=== PATIENT | female | born 1995 | race Two or more races ===

== ENCOUNTER 2024-09-06 10:24 | Outpatient (REF) | payer MEDICAID, SELFPAY ==
[2024-09-06 11:42] LABS: MANUAL DIFF FLAG NO
[2024-09-06 11:48] LABS: Basophils Percent Auto 0.5 % (0-2); Eosinophils Absolute Auto 0.1 X10*3/uL (0.0-0.4); Hematocrit 44.2 % (37.0-47.0); Hemoglobin 13.9 g/dl (12.0-16.0); Imm Gran Abs Auto 0.02 X10*3/uL (0.00-0.03); Imm Gran Pct Auto 0.4 % (0.0-0.4); Lymphocytes Absolute Auto 1.9 X10*3/uL (1.2-4.9); Lymphocytes Percent Auto 33.3 % (20-40); Mean Corpuscular HGB Conc 31.4 g/dl (31.0-35.0); Mean Corpuscular Hemoglobin 26.6 pg (27.0-33.0); Mean Corpuscular Volume 84.5 fL (80.0-98.0); Mean Platelet Volume 10.7 fL (9.4-12.3); Monocytes Absolute Auto 0.4 X10*3/uL (0.1-1.2); Monocytes Percent Auto 7.7 % (2-11); Neutrophils Absolute Auto 3.1 x10*3/uL (2.0-8.3); Neutrophils Percent Auto 56.1 % (45-73); Platelet Count 277 X10*3/uL (160-400); Red Blood Count 5.23 X10*6/uL (4.20-5.50); Red Cell Distribution Width 14.2 % (11.0-16.0); White Blood Count 5.6 X10*3/uL (4.8-10.8)
[2024-09-06 12:18] LABS: Syphilis Screen Nonreactive (Nonreactive)
--- OUTSIDE RECORDS SUMMARY | 2024-09-06 12:28 | XMS_ITS | Encounter Summary ---
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), not intractable Radha Recinos MD [address] [place] [phone] Phone: tel: fax: [facility] [address] [place] [phone] Phone: tel: fax: Referral ID Status Reason Start Date Expiration Date Visits Requested Visits Authorized [id number] Authorized Consult and Treat 08/30/2024 08/30/2025 1 1 Encounter Details Date Type Department Care Team (Latest Contact Info) Description 08/30/2024 1:00 PM EST Office Visit [facility] [address] [place] [phone] Radha Recinos MD [address] [place] [phone] Nonintractable episodic headache, unspecified headache type (Primary Dx); 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), not intractable; Subacute vaginitis Social History Tobacco Use Types Packs/Day Years Used Date Smoking Tobacco: Never Smokeless Tobacco: Never Alcohol Use Standard Drinks/Week Comments Never 0 (1 standard drink = 0.6 oz pur e alcohol) Comments Unknown Sex and Gender Information Value Date Recorded Sex Assigned at Female 03/28/2024 9:06 AM EDT Legal Sex Female 9:03 AM EDT Gender Identity Female 03/28/2024 9:06 AM EDT Sexual Orientation Straight 03/28/2024 9: 06 AM EDT documented as of this encounter Last Filed Vital Signs Vital Sign Reading Time Taken Comments Blood Pressure 135/84 08/30/2024 12:12 PM EST Pulse 75 08/30/2024 12:12 PM EST Temperature 36.4 ??C (97.5 ??F) 08/30/2024 12:[address] Respiratory Rate 16 08/30/2024 12:12 PM EST Oxygen Saturation 100% 08/30/2024 12:12 PM EST RA Inhaled Oxygen Concentration - - Weight - - Height - - Body Mass Index - - documented in this encounter Progress Notes * Merle Mcknight RN - 08/30/2024 1:00 PM EST Epicsell [id number] utilized for translation. Pt presents to [facility] reporting when she was 17 years old she had a stroke and feels like one part of head is not ok, feeling dizzy, fatigue, eyelid pulsating... feels feet cold, weak and sleepy x2 months. Pt reports when she had a stroke, residual side effects include right eyelid more closed than leftand when chew food with mouth, my eyelid starts to jump like connect to mouth... also reporting right hand shaky at times, cannot hold things with hand without dropping them and my eye more closed than other is watery... Pt right upper extremity weaker than left, which pt reports has been. Pt reports right head cannot sleep on that side due to numbness x 2-3 weeks ago, when taking a shower, feels cramps than go away. Pt reports no other known medical conditions or surgeries. Pt reports no recent urgent care or ED visits, [place]. Pt reports she tried to get appt two times but told to call and placed on wait list. * Radha Recinos MD - 08/30/2024 1:00 PM EST SUBJECTIVE: Winnie Adrian is a 29 y.o. 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 Denies recent illness, injury, or hospitalization. Patient is a new patient here, last time she saw her PCP was approximately 2 years ago. 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 Neck history of hypertension, DM, thyroid disease, CAD, hyperlipidemia, seizure disorder or cancer. PSHx: None LMP 4 months ago, she had Nexplanon implanted at [facility] 4 months ago. She had previously had Nexplanon for about 5 years, took a break of 6 to 8 months and had it implanted at the history. Meds: OTC headache medications PFHx: Mother has diabetes, no history of CAD, cancer, hypertension. 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 Acute Concerns: Complains of recurrent episodes of hemicranial headache and numbness for approximately 6 to 8-month. These episodes are usually stress or lack of sleep but sometimes she is unable to specify the trigger. Associated symptoms are usually feeling cold on that area, blurry vision that recovers immediately and occasionally tearing of her eyes. Symptoms usually last few hours and then resolve with OTC medications, last 1 was last week while she was working at a restaurant and she stepped outside and took her medication. She is having approximately 3-4 episodes per month. She occasionally has associated or isolated hemibody/mostly right side weakness and numbness that resolved spontaneously. Patient tells me that since she had the facial palsy several years ago, she has had occasional episodes of hemibody weakness and feeling cold and numb on 1 side of the face if she lies on that side. Social History Social History Narrative Lives with her and daughter + her sister and her family. 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 HENT: Negative for congestion, ear pain, nosebleeds, rhinorrhea, sinus pressure, sore throat and trouble swallowing. Eyes: Positive for pain and visual disturbance. Negative for discharge. Respiratory: Negative for cough, chest tightness and shortness of breath. Cardiovascular: Negative for chest pain, palpitations and leg swelling. Gastrointestinal: Negative for abdominal pain, blood in stool, constipation, diarrhea and nausea. Endocrine: Negative for polydipsia and polyuria. Genitourinary: Positive for vaginal discharge (Occasional, last 1 or 2 days, non- foul smell, usually clear or white.). Negative for dysuria, frequency, genital sores and pelvic pain. Musculoskeletal: Negative for back pain and neck pain. Skin: Negative for rash. Allergic/Immunologic: Negative for environmental allergies. Neurological: Positive for weakness, light-headedness, numbness and headaches. Negative for dizziness and seizures. Hematological: Negative for adenopathy. Psychiatric/Behavioral: Negative for agitation, behavioral problems, self-injury and suicidal ideas. OBJECTIVE: Vitals: 08/30/24 1212 BP: 135/84 Pulse: 75 Resp: 16 Temp: 97.5 ??F (36.4 ??C) SpO2: 100% Physical Exam HENT: Right Ear: Tympanic membrane and ear canal normal. Left Ear: Tympanic membrane and ear canal normal. Mouth/Throat: Mouth: Mucous membranes are moist. Pharynx: No oropharyngeal exudate or posterior oropharyngeal erythema. Eyes: General: Lids are normal. Extraocular Movements: Extraocular movements intact. Conjunctiva/sclera: Conjunctivae normal. Pupils: Pupils are equal, round, and reactive to light. Cardiovascular: Rate and Rhythm: Regular rhythm. Pulses: Normal pulses. Heart sounds: Normal heart sounds. No murmur heard. Pulmonary: Breath sounds: Normal breath sounds. Abdominal: General: Bowel sounds are normal. Palpations: Abdomen is soft. Tenderness: There is no abdominal tenderness. Musculoskeletal: General: Normal range of motion. Cervical back: Neck supple. Skin: General: Skin is warm. Neurological: General: No focal deficit present. Mental Status: She is alert and oriented to person, place, and time. Cranial Nerves: Cranial nerves 2-12 are intact. No dysarthria or facial asymmetry. Motor: Motor function is intact. Gait: Gait is intact. Psychiatric: Mood and Affect: Mood normal. Behavior: Behavior normal. Cognition and Memory: Cognition normal. Problem List Items Addressed This Visit Nonintractable episodic headache - Primary Unclear if related to migraine versus neuralgia. Take Excedrin Migraine along with ibuprofen as needed and keep a symptom diary. Check BP at home 3-4 times per week and follow-up with me in 6 to 8 weeks Order labs Will consider MRI at next visit. 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 Relevant Orders Comprehensive Metabolic Panel Lipid Panel with Reflex to Direct LDL TSH with Reflex to Free T4 Vitamin B12/Folate, Serum Panel Lyme Disease Ab with Reflex to Blot (IgG, IgM) Subacute vaginitis It may be related to Nexplanon, not present today. I advised her to keep symptoms diary and if symptoms continue, will to self swab Will obtain records from [facility]. Relevant Orders HIV-1/2 Antigen and Antibodies, Fourth Generation, with Reflexes Hepatitis Panel, General Syphilis Screen CBC auto differential Follow Up: Current Outpatient Medications on File Prior to Visit Medication Sig Dispense Refill acetaminophen (Tylenol) 500 MG tablet Take 1 tablet (500 mg) by mouth every 6 (six) hours if neededfor mild pain for up to 20 doses. 20 tablet 0 chlorhexidine (Peridex) 0.12 % solution Swish 15 mL morning and night for 1 minute. Spit, do not swallow. Do not eat or drink for 30 minutes following use. 473 mL 0 No current facility-administered medications on file prior to visit. documented in this encounter Miscellaneous Notes * Assessment & Plan Note - Radha Recinos MD - 08/30/2024 2:02 PM EST Associated Problem(s): Subacute vaginitis It may be related to Nexplanon, not present today. I advised her to keep symptoms diary and if symptoms continue, will to self swab Will obtain records from [facility]. 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 * Assessment & Plan Note - Radha Recinos MD - 08/30/2024 2:00 PM EST Associated Problem(s): Nonintractable episodic headache Unclear if related to migraine versus neuralgia. Take Excedrin Migraine along with ibuprofen as needed and keep a symptom diary. Check BP at home 3-4 times per week and follow-up with me in 6 to 8 weeks Order labs Will consider MRI at next visit. 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), not intractable Expected: 08/30/2024 (Approximate), Expires: 08/30/2025 Lipid Panel with Reflex to Direct LDL Lab Routine 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), not intractable Expected: 08/30/2024 (Approximate), Expires: 08/30/2025 HIV-1/2 Antigen and Antibodies, Fourth Generation, with Reflexes Lab Routine Subacute vaginitis Expected: 08/30/2024 (Approximate), Expires: 08/30/2025 Hepatitis Panel, General Lab Routine Subacute vaginitis Expected: 08/30/2024 (Approximate), Expires: 08/30/2025 TSH with Reflex to Free T4 Lab Routine 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), not intractable Expected: 08/30/2024 (Approximate), Expires: 08/30/2025 Vitamin B12/Folate, Serum Panel Lab Routine 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), not intractable Expected: 08/30/2024, Expires: 08/30/2025 Lyme Disease Ab with Reflex to Blot (IgG, IgM) Lab Routine 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), not intractable Expected: 08/30/2024, Expires: 08/30/2025 Scheduled Referrals Name Type Priority Associated Diagnoses Orde r Schedule Referral to Optometry Outpatient Referral Routine Nonintractable episodic headache, unspecified headache type 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0 - 16.0 g/dl [facility] Hematocrit 44.2 37.0 - 47.0 % [facility] Mean Corpuscular Volume 84.5 80.0 - 98.0 fL [facility] Mean Corpuscular Hemoglobin 26.6(L) 27.0 - 33.0 pg [facility] Mean Corpuscular HGB Conc 31.4 31.0 - 35.0 g/dl [facility] Red Cell Distribution Width 14.2 11.0 - 16.0 % [facility] Platelet Count 277 160 - 400 X10*3/uL [facility] Mean Platelet Volume 10.7 9.4 - 12.3 fL [facility] Neutrophils Percent Auto 56.1 45 - 73 % [facility] Imm Gran Pct Auto 0.4 0.0 - 0.4 % [facility] Lymphocytes Percent Auto 33.3 20 - 40 % [facility] Monocytes Percent Auto 7.7 2 - 11 % [facility] Eosinophils Percent Auto 2.0 0 - 4 % [facility] Basophils Percent Auto 0.5 0 - 2 % [facility] NRBC Pct Auto 0.0 0.0 - 0.2 /100WBC [facility] Neutrophils Absolute Auto 3.1 2.0 - 8.3 x10*3/uL [facility] Imm Gran Abs Auto 0.02 0.00 - 0.03 X10*3/uL [facility] Lymphocytes Absolute Auto 1.9 1.2 - 4.9 X10*3/uL [facility] Monocytes Absolute Auto 0.4 0.1 - 1.2 X10*3/uL [facility] Eosinophils Absolute Auto 0.1 0.0 - 0.4 X10*3/uL [facility] Basophils Absolute Auto 0.0 0.0 - 0.2 X10*3/uL [facility] NRBC Abs Auto 0.000 0.0 - 0.012 X10*3/uL [facility] Blood Venous blood specimen / Unknown 09/06/2024 10:29 AM EDT 09/06/2024 11:29 AM EDT us Radha Recinos MD LAB BLOOD ORDERABLES Fin al Result Performing Organization Address [facility] Co de Phone Number [facility] [address] [place] [address] [phone] * Syphilis Screen (09/06/2024 10:29 AM EDT) Syphilis Screen Nonreactive Nonreactive [facility] Blood 09/06/2024 10:2 9 AM EDT 09/06/2024 11:29 AM EDT us Radha Recinos MD LAB BLOOD ORDERABLES Fin al Result Performing Organization Address [facility] de Phone Number [facility] [address] [place] [address] [phone] documented in this encounter Visit Diagnoses Diagnosis Nonintractable episodic headache, unspecified headache type- Primary 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
--- OUTSIDE RECORDS SUMMARY | 2024-09-06 12:28 | XMS_ITS | Encounter Summary ---
Author Organization [employer] Address [address] [facility] [address] [place] [address] Care Team Providers Care Leisure Travel Agent Name Role Phone Unavailable Primary Care Provider Unavailabl e Reason for Visit * Reason Comments Extraction Panorex taken Encounter Details Date Type Department Care Team (Late st Contact Info) Description 08/08/2024 10:30 AM EST Office Visit [facility] [address] [place], [place] [phone] Gómez Richards DDS [address] [place], [place] [phone] Dental caries extending into pulp (Primary Dx) Social History Tobacco Use Types Packs/Day Years [...] Sign Reading Time Taken Comments Blood Pressure 124/72 08/08/2024 10:35 AM EST Pulse - - Temperature - - Respiratory Rate - - Oxygen Saturation - - Inhaled Oxygen Concentration - - Weight - - Height - - Body Mass Index - - documented in this encounter Progress Notes * Gómez Richards DDS - 08/08/2024 10:30 AM EST Pt presents for previously planned # 17 extraction. However, Winnie doesn't want to proceed today, stating that the molar never bother her. I explained about asymptomatic distal caries near pulp. She definitely won't like extracted today, mutual agreement to re schedule for re evaluation with Dr. Moreno. Also addressed, discomfort on recently extracted # 31,32 Pano X ray ordered / taken Shows extracted molars, no residual roots, no bone spicule noticed. Clinically healing almost complete, except on # 32 region, mild exudate noticed. Prescription sent to [facility] on file, advised Winnie to improve [employer] [place] Re eval # 17 It Business Analyst Kiesha Adams documented in this encounter Miscellaneous Notes * Addendum Note - Gómez Richards DDS - 08/08/2024 10:30 AM ESTAddended by: GÓMEZ RICHARDS on: 08/08/2024 11:30 AM Modules accepted: Orders documented in this encounter Plan of Treatment Upcoming Encounters Date Type Department Care Team (Late st Contact Info) Description 09/19/2024 8:00 AM EDT Office Visit [facility] [address] [place] [address] Lloyd Moreno, CHAIM [address] [place] [address] 10/28/2024 10:00 AM EDT Office Visit [facility] [address] [place] [address] Radha Recinos MD [address] [place] [phone] documented as of this encounter Procedures Procedure Name Priority Date/Time Associated Diagnosis Comments PANORAMIC RADIOGRAPHIC IMAGE Routine 08/08/2024 10:30 AM EST CASE PRESENTATION, DETAILED AND EXTENSIVE TREATMENT PLANNING Routine 08/08/2024 10:30 AM EST documented in this encounter Visit Diagnoses Diagnosis Dental caries extending into pulp- Primary documented in this encounter
--- OUTSIDE RECORDS SUMMARY | 2024-09-06 12:28 | XMS_ITS | Encounter Summary ---
Author Organization [employer] Address [address] [facility] [address] [place] [address] Care Team Providers Care Jet Operator Name Role Phone Radha Recinos MD Primary Care Provider + Reason for Visit * Reason Onset Date Comments rs missed appt 08/16/2024 Encounter Details Date Type Department Care Team (Late st Contact Info) Description 08/16/2024 Telephone [facility] [address] [place] [address] Gogo Constantino [address] [place] [address] rs missed appt Social History Tobacco Use Types Packs/Day Years [...] AM EDT documented as of this encounter Miscellaneous Notes * Telephone Encounter - Shefali Mendez - 08/16/2024 8:47 AM EST Patient called in to reschedule an appt that she is unable to make it to. Patient called in within the hour. Patient informed that office will get in touch with her to reschedule after a waiting period DR documented in this encounter Plan of Treatment Upcoming Encounters Date Type Department Care Team (Late st Contact Info) Description 09/19/2024 8:00 AM EDT Office Visit [facility] [address] [place], [place] [phone] Lloyd Moreno, CHAIM [address] [place], [place] [phone] 10/28/2024 10:00 AM EDT Office Visit [facility] [address] [place], [place] [phone] Radha Recinos MD [address] [place], [place] [phone] documented as of this encounter Visit Diagnoses Not on filedocumented in this encounter Care Teams Jet Operator Relationship Specialty Start Date End Date Radha Recinos MD [address] [place], [place] [phone] PCP - General Internal Medicine 08/30/24 documented as of this encounter
--- OUTSIDE RECORDS SUMMARY | 2024-09-06 12:28 | XMS_ITS | Clinical Summary ---
Author Organization [employer] Address [address] [place] [address] Care Team Providers Care Simplex Operator Name Role Phone Radha Recinos MD Primary Care Provider + Allergies No known active allergies Medications chlorhexidine (Peridex) 0.12 % solution Swish 15 mL morning and night for 1 minute. Spit, do not swallow. Do not eat or drink for 30 minutes following use. 473 mL 08/08/19 25 Active acetaminophen (Tylenol) 500 MG tablet Take 1 tablet (500 mg) by mouth every 6 (six) hours if needed for mild pain for up to 20 doses. 20 tablet 08/08/19 25 Active Blood Pressure Monitoring (Blood Pressure Cuff) misc Use daily as prescribed 1 each 08/31/19 25 Active aspirin-acetam inophen-caffei ne (Excedrin Migraine) 250-250-65 MG tablet Take 1 tablet by mouth every 6 (six) hours if needed for headaches. 60 tablet 1 08/31/19 25 025 Active amoxicillin (Amoxil) 500 MG capsule Take 500 mg by mouth. 025 Discontinued amoxicillin (Amoxil) 500 MG capsule Take 1 capsule (500 mg) by mouth every 8 (eight) hours for 7 days. 21 capsule 08/08/19 25 025 Active Problems Problem Noted Date Diagnosed Date Subacute vaginitis 08/30/2024 Assessment & Plan (08/30/2024 2:04 PM EST): It may be related to Nexplanon, not present today. I advised her to keep symptoms diary and if symptoms continue, will to self swab Will obtain records from [facility]. 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 Nonintractable episodic headache 08/30/2024 Assessment & Plan (08/30/2024 2:00 PM EST): Unclear if related to migraine versus neuralgia. Take Excedrin Migraine along with ibuprofen as needed and keep a symptom diary. Check BP at home 3-4 times per week and follow-up with me in 6 to 8 weeks Order labs Will consider MRI at next visit. 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), not intractable; Subacute vaginitis 08/16/2024 Telephone [facility] [address] [place] [address] Gogo Constantino rs missed appt 08/08/2024 10:30 AM EST Office Visit [facility] [address] [place] [address] Shreyas Richards DDS Dental caries extending into pulp (Primary Dx) 07/12/2024 8:00 AM EST Office Visit [facility] [address] [place] [address] Shreyas Richards DDS Periodontal disease (Primary Dx); Dental caries extending into pulp 06/17/2024 Telephone [facility] [address] [place] [address] Shreyas Richards DDS 06/13/2024 11:00 AM EST Office Visit [facility] [address] [place] [address] Chastity Torre Periodontal disease (Primary Dx); Dental calculus from Last 3 Months Family History Medical History Relation Name Comments No Known Problems Father Diabetes Mother Relation Name Status Comments Father Mother Social History Tobacco Use Types Packs/Day Years Used Date Smoking Tobacco: Never Smokeless Tobacco: Never Tobacco Cessation:Counseling Given: Not Answered Alcohol Use Standard Drinks/Week Comments Never 0 (1 standard drink = 0.6 oz pur e alcohol) Comments Unknown Sex and Gender Information Value Date Recorded Sex Assigned at Female 03/28/2024 9:06 AM EDT Legal Sex Female 9:03 AM EDT Gender Identity Female 03/28/2024 9:06 AM EDT Sexual Orientation Straight 03/28/2024 9: 06 AM EDT Last Filed Vital Signs Vital Sign Reading [...] - - Body Mass Index - - Plan of Treatment Upcoming Encounters Date Type Department Care Team (Late st Contact Info) Description 09/19/2024 8:00 AM EDT Office Visit [facility] [address] [place] [address] Lloyd Moreno DMD [address] [place] [address] 10/28/2024 10:00 AM EDT Office Visit [facility] [address] [place] [address] Radha Recinos MD [address] [place] [address] Health Maintenance Due Date Last Done Comments Depression Screening 1994 HIV Screening 1994 SDOH Screening 1994 Alcohol/Substance Use Screening 2006 Family Planning (PISQ) 2009 Hepatitis C Screening 2012 DTaP/Tdap/Td Vaccines (1 - Tdap) 2013 Hepatitis B Vaccines (1 of 3 - 19+ 3-dose series) 2013 Pap Smear 2015 COVID-19 Vaccine ( - 2023-2 5 season) 2024 Influenza Vaccine (#1) 2024 Cervical Cancer Screening 2024 HPV/Cotest 2024 Dental Oral Exam 10/31/2024 05/02/2024 Dental Prophylaxis 12/13/2024 06/13/2024 Dental X-Ray: Bitewings 05/03/2025 05/02/2024 Tobacco Screening 08/30/2025 08/30/2024 Dental X-Ray: Full Mouth 08/09/2027 025, 05/02/2024 Zoster Vaccines (1 of 2) 2044 RSV Patients and Patients Aged 60 years or older (1 - 1-dose 75+ series) 2069 HIB Vaccines Aged Out No longer eligi ble based on patient's age to complete this topic HPV Vaccines Aged Out No longer eligi ble based on patient's age to complete this topic Hepatitis A Vaccines Aged Out No long er eligible based on patient's age to complete this topic IPV Vaccines Aged Out No longer eligi ble based on patient's age to complete this topic Meningococcal Vaccine Aged Out No gabino deepak eligible based on patient's age to complete this topic Pneumococcal Vaccine: Pediatrics (0 to 5 Years) and At-Risk Patients (6 to 49) Years) Aged Out No longer eligible b ased on patient's age to complete this topic RSV under 20 months Aged Out No longe r eligible based on patient's age to complete this topic Rotavirus Vaccines Aged Out No longer eligible based on patient's age to complete this topic Procedures Procedure Name Priority Date/Time Associated Diagnosis Comments CBC WITH AUTO DIFFERENTIAL Routine 09/06/2024 10:29 AM EDT Subacute vaginitis SYPHILIS SCREEN Routine 09/06/2024 10:29 AM EDT Subacute vaginitis CASE PRESENTATION, DETAILED AND EXTENSIVE TREATMENT PLANNING Routine 08/08/2024 10:30 AM EST PANORAMIC RADIOGRAPHIC IMAGE Routine 08/08/2024 10:30 AM EST CASE PRESENTATION, DETAILED AND EXTENSIVE TREATMENT PLANNING Routine 07/12/2024 8:00 AM EST 32 EXTRACTION, ERUPTED TOOTH OR EXPOSED ROOT (ELEVATION/FORCEPS REMOVAL) Routine 07/12/2024 8:00 AM EST 31 EXTRACTION, ERUPTED TOOTH OR EXPOSED ROOT (ELEVATION/FORCEPS REMOVAL) Routine 07/12/2024 8:00 AM EST CASE PRESENTATION, DETAILED AND EXTENSIVE TREATMENT PLANNING Routine 06/13/2024 11:00 AM EST Periodontal disease Dental calculus ORAL HYGIENE INSTRUCTIONS Routine 06/13/2024 11:00 AM EST Periodontal disease Dental calculus PROPHYLAXIS - ADULT Routine 06/13/2024 1 1:00 AM EST Periodontal disease Dental calculus INTRAORAL - COMPLETE SERIES OF RADIOGRAPHIC IMAGES Routine 05/02/2024 8:00 AM EST COMPREHENSIVE ORAL EVALUATION - NEW OR ESTABLISHED PATIENT Routine 05/02/2024 8:00 AM EST from Last 3 Months or Most Recently Relevant to Health Maintenance Results * Syphilis Screen (09/06/2024 10:29 AM EDT) Pathologist [facility] Syphilis Screen Nonreactive Nonreactive [facility] Blood 09/06/2024 10:2 9 AM EDT 09/06/2024 11:29 AM EDT us Radha Recinos MD LAB BLOOD ORDERABLES Fin al Result [facility] [address] [place] [phone] * (ABNORMAL) CBC auto differential (09/06/2024 10:29 AM EDT) Pathologist [facility] White Blood Count 5.6 4.8 - 10.8 X10*3/uL [facility] Red Blood Count 5.23 4.20 - 5.50 X10*6/uL [facility] Hemoglobin 13.9 12.0 - 16.0 g/dl [facility] Hematocrit 44.2 37.0 - 47.0 % [facility] Mean Corpuscular Volume 84.5 80.0 - 98.0 fL [facility] Mean Corpuscular Hemoglobin 26.6(L) 27.0 - 33.0 pg [facility] Mean Corpuscular HGB Conc 31.4 31.0 - 35.0 g/dl [facility] Red Cell Distribution Width 14.2 11.0 - 16.0 % [facility] Platelet Count 277 160 - 400 X10*3/uL [facility] Mean Platelet Volume 10.7 9.4 - 12.3 fL [facility] Neutrophils Percent Auto 56.1 45 - 73 % [facility] Imm Gran Pct Auto 0.4 0.0 - 0.4 % [facility] Lymphocytes Percent Auto 33.3 20 - 40 % [facility] Monocytes Percent Auto 7.7 2 - 11 % [facility] Eosinophils Percent Auto 2.0 0 - 4 % [facility] Basophils Percent Auto 0.5 0 - 2 % [facility] NRBC Pct Auto 0.0 0.0 - 0.2 /100WBC [facility] Neutrophils Absolute Auto 3.1 2.0 - 8.3 x10*3/uL [facility] Imm Gran Abs Auto 0.02 0.00 - 0.03 X10*3/uL [facility] Lymphocytes Absolute Auto 1.9 1.2 - 4.9 X10*3/uL [facility] Monocytes Absolute Auto 0.4 0.1 - 1.2 X10*3/uL [facility] Eosinophils Absolute Auto 0.1 0.0 - 0.4 X10*3/uL [facility] Basophils Absolute Auto 0.0 0.0 - 0.2 X10*3/uL [facility] NRBC Abs Auto 0.000 0.0 - 0.012 X10*3/uL [facility] Blood Venous blood specimen / Unknown 09/06/2024 10:29 AM EDT 09/06/2024 11:29 AM EDT us Radha Recinos MD LAB BLOOD ORDERABLES Fin al Result [facility] [address] [place], [place] [id number] [phone] from Last 3 Months Insurance [facility] HSN FULL DENTAL - N FULL (MEDICAID) DENTAL-[facility] MEDICAID LIMITED ADULT Care Teams Simplex Operator Relationship Specialty Start Date End Date Radha Recinos MD [address] [place] [id number] PCP - General Internal Medicine 08/30/24
[2024-09-06 12:31] LABS: HBS Num1 1.27 mIU/mL (0-7.99); HBc Num1 0.07 S/CO (0.00-0.79); HBsAGNum1 0.25 S/CO (0.00-0.99); HIV AB/AG Nonreactive (Nonreactive); HIV Num 1 0.07 S/CO (0.00-0.99); Hepatitis A Antibody IgM 0.21 Index (0-0.79); Hepatitis B Core Antibody Nonreactive (Nonreactive); Hepatitis B Surface Antigen Negative (Negative); ~HepC Num1 0.16 S/CO (0.00-0.79); ~Hepatitis A Antibody IgM Nonreactive (Nonreactive); ~Hepatitis B Surface Antibody NONREACTIVE (Nonreactive); ~Hepatitis C Antibody Nonreactive (Nonreactive)
[2024-09-06 12:34] LABS: Alanine Aminotransferase 27 U/L (0-31); Albumin Level 4.4 g/dL (3.5-5.0); Alkaline Phosphatase 26 U/L (39-117); Anion Gap 11 (12-20); Aspartate Amino Transferase 18 U/L (5-31); Bilirubin Total 0.5 mg/dL (0.0-1.0); Blood Urea Nitrogen 6 mg/dL (9-16); Calcium 9.1 mg/dL (8.4-10.2); Carbon Dioxide 26 mmol/L (22-29); Chloride 109 mmol/L (96-108); Cholesterol 172 mg/dL (<200); Estimated Glomerular Filt Rate > 60; Folate 13.7 ng/mL (> or = 4.0); Glucose Random 100 mg/dL (60-115); HDL Cholesterol 54 mg/dL (>40); LDL Cholesterol Calculated 95 mg/dL (<100); Potassium 4.6 mmol/L (3.3-5.1); Sodium 141 mmol/L (135-145); TSH reflex Free T4 3.35 uIU/mL (0.32-4.0); Total Protein 7.8 g/dL (6.5-8.0); Triglycerides 118 mg/dL (<150); Vitamin B12 430 pg/mL (200-900)
[2024-09-06 14:03] LABS: Reflex LDLD? No
[2024-09-07 09:13] LABS: Lyme Abs Screen <0.90 index
== END 2024-09-06 10:25 | disposition home or self-care (01) ==
LOC: HO.HHCL 10:24
PROVIDERS: Visit Provider Internal Medicine
DX: N76.1 Subacute and chronic vaginitis (principal); G44.059 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), not intractable
CPT/HCPCS: 36415; 80053; 80061; 82607; 82746; 84443; 85025; 86617; 86618; 86704; 86706; 86709; 86780; 86803; 87340; 87389

== ENCOUNTER → 2024-11-07 17:41 | Outpatient (BNV) | payer SELFPAY | PROVIDERS: PCP Internal Medicine; Visit Provider Radiology Diagnostic Radiology | DX: R51.9 Headache, unspecified (principal) | CPT/HCPCS: 70551 ==

== ENCOUNTER 2024-11-07 17:51 | Outpatient (REF) | payer MEDICAID, OTHER, SELFPAY ==
--- NOTE | ~2024-11-07 | MR_ITS ---
EXAMINATION: MR BRAIN WITHOUT IV CONTRAST HISTORY: Headache TECHNIQUE: Sagittal T1, and axial T1, FLAIR, T2, gradient echo, and diffusion weighted MR images of the brain were obtained. COMPARISON: None FINDINGS: The brain parenchyma is unremarkable, demonstrating normal ren/white differentiation. No foci of abnormal signal intensity are identified. The ventricular system is normal in size and configuration. There is no mass effect or midline shift. No intra or extra-axial fluid collections are identified. There are no foci of restricted diffusion. Normal vascular flow voids are noted in the basilar and carotid arteries. The visualized paranasal sinuses are clear. There is adenoidal hypertrophy. MR/MR head/brain wo con IMPRESSION: Unremarkable MRI of the brain without contrast. Electronically signed by: Harvey Spain MD 11/08/2024 07:36 AM EDT
--- OUTSIDE RECORDS SUMMARY | 2024-11-07 17:53 | XMS_ITS | Clinical Summary ---
Author Organization [employer] Address [address] [facility] [address] [place] [address] Care Team Providers Care Matrix Repairer Name Role Phone Radha Recinos MD Primary Care Provider + Allergies No known active allergies Medications Blood Pressure Monitoring [facility] Cuff) [facility] Use daily as prescribed 1 each 08/31/19 25 Active Additional Information Patient not taking.Reported on 10/24/2024 SUMAtriptan (Imitrex) 50 MG tablet Take 1 tablet (50 mg) by mouth 1 (one) time if needed for migraine for up to 36 doses. May repeat dose once in 2 hours if no relief. Do not exceed 2 doses in 24 hours. 9 tablet 3 10/29/19 25 Active amitriptyline (Elavil) 25 MG tablet Take 1 tablet (25 mg) by mouth at bedtime. 90 tablet 1 10/29/19 25 026 Active acetaminophen (Tylenol) 500 MG tablet Take 1 tablet (500 mg) by mouth every 6 (six) hours if needed for mild pain. 90 tablet 10/29/19 25 025 Active ibuprofen 600 MG tabletIndicat ions:Alveolit is of jaw, left Take 1 tablet (600 mg) by mouth 3 times daily. 30 tablet 11/08/19 25 Active amoxicillin (Amoxil) 500 MG capsuleIndica tions:Alveoli tis of jaw, left Take 1 capsule (500 mg) by mouth every 8 (eight) hours for 7 days. 21 capsule 11/08/19 25 025 Active chlorhexidine (Peridex) 0.12 % solutionIndic ations:Alveol itis of jaw, left Swish 15 mL morning and night for 1 minute. Spit, do not swallow. Do not eat or drink for 30 minutes following use. 473 mL 05/12/20 25 Active chlorhexidine (Peridex) 0.12 % solutionIndic ations:Alveol itis of jaw, left Swish 15 mL morning and night for 1 minute. Spit, do not swallow. Do not eat or drink for 30 minutes following use. 473 mL 11/08/19 25 Active chlorhexidine (Peridex) 0.12 % solution Swish 15 mL morning and night for 1 minute. Spit, do not swallow. Do not eat or drink for 30 minutes following use. 473 mL 08/08/19 25 025 Discontinued(Re order (will not trigger notification to Pharmacy)) acetaminophen (Tylenol) 500 MG tablet Take 1 tablet (500 mg) by mouth every 6 (six) hours if needed for mild pain for up to 20 doses. 20 tablet 08/08/19 25 025 Discontinued(Re order (will not trigger notification to Pharmacy)) amoxicillin (Amoxil) 500 MG capsule Take 1 capsule (500 mg) by mouth every 8 (eight) hours for 7 days. 21 capsule 10/04/19 25 025 acetaminophen (Tylenol) 500 MG tablet Take 1 tablet (500 mg) by mouth every 8 (eight) hours if needed for mild pain or moderate pain for up to 5 days. 15 tablet 10/04/19 25 025 chlorhexidine (Peridex) 0.12 % solution Use 15 mL in the mouth or throat if needed in the morning, at noon, and at bedtime (PROPHYLAXIS) for up to 5 days. 110 mL 10/04/19 25 025 Active Problems Problem Noted Date Diagnosed Date History of tooth extraction 11/07/2024 Pain, dental 10/24/2024 Short lasting unilateral niharika ralgiform headache with [...] visit. Dental caries extending into pulp 07/12/2024 Alveolitis of jaw, left 06/13/2024 Dental calculus 06/13/2024 Resolved Problems Problem Noted Date Diagnosed Date Resolved Date Subacute vaginitis 08/30/2024 Assessment & Plan (08/30/2024 2:04 PM EST): It may be related to Nexplanon, not present today. I advised her to keep symptoms diary and if symptoms continue, will to self swab Will obtain records from [facility]. Encounters Date Type Department Care Team Description 11/07/2024 11:00 AM EDT Office Visit [facility] [address] [place] [address] Chastity Torre History of tooth extraction, unspecified edentulism class (Primary Dx); Alveolitis of jaw, left 10/28/2024 10:00 AM EDT Office Visit [facility] [address] [place] [phone] Radha Recinos MD Nonintractable episodic headache, unspecified headache type (Primary Dx) 10/28/2024 Travel 10/24/2024 8:00 AM EDT Office Visit [facility] [address] [place] [address] Shreyas Richards DDS Dental caries extending into pulp (Primary Dx); Pain, dental 10/24/2024 Telephone [facility] [address] [place] [phone] Radha Recinos MD Chart prep 10/21/2024 Patient Outreach [facility] [address] [place], [place] [phone] Radha Recinos MD Pre-visit Planning ([facility] unable to reach, disconnected) 10/03/2024 10:00 AM EDT Office Visit [facility] [address] [place] [address] Lloyd Moreno DMD 09/19/2024 8:00 AM EDT Office Visit [facility] [address] [place] [address] Lloyd Moreno, CHAIM 08/30/2024 1:00 PM EST Office Visit [facility] [address] [place] [address] Radha Recinos MD Nonintractable episodic headache, unspecified headache type (Primary Dx); 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), not intractable; Subacute vaginitis 08/16/2024 Telephone [facility] [address] [place] [address] Gogo Constantino missed appt from Last 3 Months Family History Medical History Relation Name Comments No Known Problems Father Diabetes Mother Relation Name Status Comments Father Mother Social History Tobacco Use Types Packs/Day Years Used Date Smoking Tobacco: Never Smokeless Tobacco: Never Tobacco Cessation:Counseling Given: Not Answered Alcohol Use Standard Drinks/Week Comments Never 0 (1 standard drink = 0.6 oz pur e alcohol) Depression Answer Date Recorded Patient Health Questionnaire-9 Score 4 10/28/2024 Patient Health Questionnaire-9 Score 4 10/28/2024 Last PHQ-9: Questionnaire Data Not on file 0 10/28/2024 Housing Stability Answer Date Recorded What is your housing situation today? I have allie gray 10/28/[address] you li ve. Do you have problems with any of the following? None of the above 10/28/2024 Food Insecurity Answer Date Recorded Within the past 12 months, y ou worried that your food would run out before you got money to buy more: Never True 10/28/2024 Within the past 12 months,th e food you bought just didn't last and you didn't have enough money to get more: Never True 07/2024 Transportation Answer Date Recorded In the past 12 months, has l ack of transportation kept you from medical appts, meetings, work or from getting things needed for daily living? No 10/28/2024 Utilities Answer Date Recorded In the past 12 months, has t he electric, gas, oil or water company threatened to shut off services in your home? No 10/28/2024 Depression Answer Date Recorded Patient Health Questionnaire-2 Score 2 10/28/2024 Internet Access Answer Date Recorded Internet Access Q1 No 10/28/2024 Internet Access Q2 I do not want or need it 07/2024 Comments No Sex and Gender Information Value Date Recorded Sex Assigned at Female 03/28/2024 9:06 AM EDT Legal Sex Female 9:03 AM EDT Gender Identity Female 03/28/2024 9:06 AM EDT Sexual Orientation Straight 03/28/2024 9: 06 AM EDT Last Filed Vital Signs Vital Sign Reading Time Taken Comments Blood Pressure 114/68 11/07/2024 11:11 AM EDT Pulse 67 10/28/2024 10:06 AM EDT Temperature 36 ??C (96.8 ??F) 10/28/2024 10:06 AM EDT Respiratory Rate 12 10/28/2024 10:06 AM EDT Oxygen Saturation 100% 10/28/2024 10:06 AM EDT Inhaled Oxygen Concentration - - Weight 64.4 kg (142 lb) 10/28/2024 10:06 AM EDT Height 163.2 cm (5' 4.25 ) 10/28/2024 10:06 AM E DT Body Mass Index 24.18 10/28/2024 10:06 AM EDT Plan of Treatment Upcoming Encounters Date Type Department Care Team (Late st Contact Info) Description 11/28/2024 11:00 AM EDT Office Visit [facility] [address] [place] [address] Nicho, Chastity [address] [place] [address] 12/12/2024 11:15 AM EDT Office Visit [facility] [address] [place] [address] TarMaggie olivia, OD [address] [place] [address] 01/25/2025 11:30 AM EDT Office Visit [facility] [address] [place] [address] Radha Recinos MD [address] [place] [address] Health Maintenance Due Date Last Done Comments Alcohol/Substance Use Screening 2006 Family Planning (PISQ) 2009 DTaP/Tdap/Td Vaccines (1 - Tdap) 2013 Hepatitis B Vaccines (1 of 3 - 19+ 3-dose series) 2013 Pap Smear 2015 COVID-19 Vaccine (1 - 2023-2 5 season) 2024 Influenza Vaccine (#1) 2024 Cervical Cancer Screening 2024 HPV/Cotest 2024 Dental Oral Exam 10/31/2024 05/02/2024 Dental Prophylaxis 12/13/2024 06/13/2024 Dental X-Ray: Bitewings 10/04/2025 10/04/19 25, 05/02/2024 Depression Screening 10/28/2025 10/28/2024, 10/28/2024 SDOH Screening 10/28/2025 10/28/2024 Tobacco Screening 10/28/2025 10/28/2024 Dental X-Ray: Full Mouth 08/09/2027 025, 05/02/2024 Zoster Vaccines (1 of 2) 2044 RSV Patients and Patients Aged 60 years or older (1 - 1-dose 75+ series) 2069 HIV Screening Completed 09/06/2024 Hepatitis C Screening Completed 09/06/2024 HIB Vaccines Aged Out No longer eligi [...] Procedure Name Priority Date/Time Associated Diagnosis Comments INTRAORAL - PERIAPICAL FIRST RADIOGRAPHIC IMAGE Routine 11/07/2024 11:00 AM EDT NO CHARGE VISIT Routine 11/07/2024 11:00 AM EDT 17 EXTRACTION, ERUPTED TOOTH OR EXPOSED ROOT (ELEVATION/FORCEPS REMOVAL) Routine 10/24/2024 8:00 AM EDT CASE PRESENTATION, DETAILED AND EXTENSIVE TREATMENT PLANNING Routine 10/24/2024 8:00 AM EDT CASE PRESENTATION, DETAILED AND EXTENSIVE TREATMENT PLANNING Routine 10/03/2024 10:00 AM EDT BITEWING - SINGLE RADIOGRAPHIC IMAGE Routine 10/03/2024 10:00 AM EDT INTRAORAL - PERIAPICAL FIRST RADIOGRAPHIC IMAGE Routine 10/03/2024 10:00 AM EDT PALLIATIVE (EMERGENCY) TREATMENT OF DENTAL PAIN - MINOR PROCEDURE Routine 10/03/2024 10:00 AM EDT CASE PRESENTATION, DETAILED AND EXTENSIVE TREATMENT PLANNING Routine 09/19/2024 8:00 AM EDT 15 O AMALGAM - 1 SURF, PRIMARY OR PERMANENT Routine 09/19/2024 8:00 AM EDT 14 LO AMALGAM - 2 SURF, PRIMARY OR PERMANENT Routine 09/19/2024 8:00 AM EDT CBC WITH AUTO DIFFERENTIAL Routine 09/06/2024 10:29 AM EDT Subacute vaginitis LYME DISEASE AB W/REFL TO BLOT (IGG, IGM) Routine 09/06/2024 10:29 AM EDT 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), not intractable VITAMIN B12/FOLATE, SERUM PANEL Routine 09/06/2024 10:29 AM EDT 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), not intractable TSH W/REFLEX TO FT4 Routine 09/06/2024 1 0:29 AM EDT 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), not intractable SYPHILIS SCREEN Routine 09/06/2024 10:29 AM EDT Subacute vaginitis HEPATITIS PANEL, GENERAL Routine 09/06/2024 10:29 AM EDT Subacute vaginitis HIV 1/2 ANTIGEN/ANTIBODY, FOURTH GENERATION W/RFL Routine 09/06/2024 10:29 AM EDT Subacute vaginitis LIPID PANEL WITH REFLEX TO DIRECT LDL Routine 09/06/2024 10:29 AM EDT 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), not intractable COMPREHENSIVE METABOLIC PANEL Routine 09/06/2024 10:29 AM EDT 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), not intractable PANORAMIC RADIOGRAPHIC IMAGE Routine 08/08/2024 10:30 AM EST PROPHYLAXIS - ADULT Routine 06/13/2024 1 1:00 AM EST Periodontal disease Dental calculus COMPREHENSIVE ORAL EVALUATION - NEW OR ESTABLISHED PATIENT Routine 05/02/2024 8:00 AM EST from Last 3 Months or Most Recently Relevant to Health Maintenance Results * Syphilis Screen (09/06/2024 10:29 AM EDT) Pathologist [facility] Syphilis Screen Nonreactive Nonreactive [facility] Blood 09/06/2024 10:2 9 AM EDT 09/06/2024 11:29 AM EDT Radha Recinos MD LAB BLOOD ORDERABLES Fin al Result [facility] [address] [place] [address] [phone] * Vitamin B12/Folate, Serum Panel (09/06/2024 10:29 AM EDT) Vitamin B12 430 200 - 900 pg/mL [facility] Comment:NORMAL 200-900 PG/ML INDETERMINATE 160-199 PG/ML DEFICIENT < 160 PG/ML Folate 13.7 > or = 4.0 ng/mL [facility] Comment:Reference Values:> o r = 4.0 ng/mL< 4.0 ng/mL suggests folate deficiency Methotrexate, aminopterin and folinic acid(leucovorin) are chemotherapeutic agents whose molecularstructures are similar to folate; therefore, the Architectfolate assay cannot be used for patients using these drugs. Blood Venous blood specimen / Unknown 09/06/2024 10:29 AM EDT 09/06/2024 11:29 AM EDT Radha Recinos MD LAB BLOOD ORDERABLES Fin al Result Performing Organization Address [facility]/ZIP Co de Phone Number [facility] [address] [place] [phone] * TSH with Reflex to Free T4 (09/06/2024 10:29 AM EDT) TSH reflex Free T4 3.35 0.32 - 4.0 uIU/mL [facility] Blood 09/06/2024 10:2 9 AM EDT 09/06/2024 11:29 AM EDT Radha Recinos MD LAB BLOOD ORDERABLES Fin al Result Performing Organization Address [facility] de Phone Number [facility] [address] [place] [phone] * Lyme Disease Ab with Reflex to Blot (IgG, IgM) (09/06/2024 10:29 AM EDT) Pathologist [facility] Lyme Antibody Screen <0.90 index [facility] Comment:Index Interpretation ----- < 0.90 Negative 0.90-1.09 Equivocal > 1.09 PositiveAs recommended by the Food and Drug Administration(FDA), all samples with positive or equivocalresults in a Borrelia burgdorferi antibody screenwill be tested using a blot method. Positive orequivocal screening test results should not beinterpreted as truly positive until verified as suchusing a supplemental assay (e.g., B. burgdorferi blot).The screening test and/or blot for B. burgdorferiantibodies may be falsely negative in early stagesof Lyme disease, including the period when erythemamigrans is apparent.THIS TEST WAS PERFORMED AT:[facility] [phone] CHOPRA MD Lyme Blot TNP [facility] 09/06/2024 10:2 9 AM EDT 09/06/2024 11:29 AM EDT us Radha Recinos MD LAB BLOOD ORDERABLES Fin al Result Performing Organization Address City/[facility]/ZIP Co de Phone Number [facility] [address] [place] [phone] [phone] * Lipid Panel with Reflex to Direct LDL (09/06/2024 10:29 AM EDT) Triglycerides 118 <150 mg/dL [facility] Comment:Desirable Triglyceri de: less than 150 mg/dLBorderline High Triglyceride 150-199 mg/dLHigh Triglyceride: 200-499 mg/dLVery High Triglyceride: greater than or equal to 5OO mg/dL Cholesterol 172 <200 mg/dL [facility] Comment:Desirable Cholestero l: less than 200 mg/dLBorderline High Cholesterol: 200-239 mg/dLHigh Cholesterol: greater than 239 mg/dL LDL Cholesterol Calculated 95 <100 mg/dL [facility] Comment:Desirable LDL: less than 100 mg/dLNear Optimal/Above Optimal LDL: 110- 129 mg/dLBorderline High LDL: 130-159 mg/dLHigh LDL: 160-189 mg/dLVery High LDL: greater than or equal to 190 mg/dL HDL Cholesterol 54 >40 mg/dL [facility] Comment:Desirable HDL: great er than 40 mg/dL Note: This HDL assay may give artificially low results in patients with liver disease. Blood 09/06/2024 10:2 9 AM EDT 09/06/2024 11:29 AM EDT Radha Recinos MD LAB BLOOD ORDERABLES Fin al Result Performing Organization Address City/[facility]/ZIP Co de Phone Number [facility] [address] [place] [address] [phone] * Hepatitis Panel, General (09/06/2024 10:29 AM EDT) Hepatitis A IgM Nonreactive Nonreactive [facility] Comment:IgM antibodies to WILLIAMSON V not detected; does not exclude earlyacute or recovered HAV infection. ~Hepatitis B Surface Antibody NONREACTIVE Nonreactive [facility] Comment:Nonreactive: < 8.00 mIU/mL Hepatitis B Core Antibody Nonreactive Nonreactive [facility] Hepatitis C Antibody Nonreactive Nonreactive [facility] Comment:Antibodies to HCV no t detected; does not exclude early acuteHCV infection. Hepatitis B Surface Ag Negative Negative [facility] Blood 09/06/2024 10:2 9 AM EDT 09/06/2024 11:29 AM EDT us Radha Recinos MD LAB BLOOD ORDERABLES Fin al Result [facility] [address] [place] [phone] * (ABNORMAL) CBC auto differential (09/06/2024 10:29 AM EDT) Pathologist [facility] White Blood Count 5.6 4.8 - 10.8 X10*3/uL [facility] Red Blood Count 5.23 4.20 - 5.50 X10*6/uL [facility] Hemoglobin 13.9 12.0 - 16.0 g/dl [facility] Hematocrit 44.2 37.0 - 47.0 % [facility] Mean Corpuscular Volume 84.5 80.0 - 98.0 fL [facility] Mean Corpuscular Hemoglobin 26.6(L) 27.0 - 33.0 pg [facility] Mean Corpuscular HGB Conc 31.4 31.0 - 35.0 g/dl [facility] Red Cell Distribution Width 14.2 11.0 - 16.0 % [facility] Platelet Count 277 160 - 400 X10*3/uL [facility] Mean Platelet Volume 10.7 9.4 - 12.3 fL [facility] Neutrophils Percent Auto 56.1 45 - 73 % [facility] Imm Gran Pct Auto 0.4 0.0 - 0.4 % [facility] Lymphocytes Percent Auto 33.3 20 - 40 % [facility] Monocytes Percent Auto 7.7 2 - 11 % [facility] Eosinophils Percent Auto 2.0 0 - 4 % [facility] Basophils Percent Auto 0.5 0 - 2 % [facility] NRBC Pct Auto 0.0 0.0 - 0.2 /100WBC [facility] Neutrophils Absolute Auto 3.1 2.0 - 8.3 x10*3/uL [facility] Imm Gran Abs Auto 0.02 0.00 - 0.03 X10*3/uL [facility] Lymphocytes Absolute Auto 1.9 1.2 - 4.9 X10*3/uL [facility] Monocytes Absolute Auto 0.4 0.1 - 1.2 X10*3/uL [facility] Eosinophils Absolute Auto 0.1 0.0 - 0.4 X10*3/uL [facility] Basophils Absolute Auto 0.0 0.0 - 0.2 X10*3/uL [facility] NRBC Abs Auto 0.000 0.0 - 0.012 X10*3/uL [facility] Blood Venous blood specimen / Unknown 09/06/2024 10:29 AM EDT 09/06/2024 11:29 AM EDT us Radha Recinos MD LAB BLOOD ORDERABLES Fin al Result [facility] [address] [place] [phone] * HIV-1/2 Antigen and Antibodies, Fourth Generation, with Reflexes (09/06/2024 10:29 AM EDT) HIV AB/AG Nonreactive Nonreactive [facility] Comment:HIV-1 p24 Ag and/or HIV-1/HIV-2 Ab not detected.A test result that is nonreactive does not exclude thepossibility of exposure to or infection with HIV-1 and/orHIV-2. Nonreactive results in this assay for individualswith prior exposure to HIV-1 and/or HIV-2 may be due toantigen and antibody levels that are below the limit ofdetection of this assay.The [employer] HIV Ag/Ab Combo assay result andsupplemental assay results should be interpreted inconjunction with the patient's clinical presentation,history and other laboratory results. If the results areinconsistent with clinical evidence, additional testing issuggested to confirm the result. Blood Venous blood specimen / Unknown 09/06/2024 10:29 AM EDT 09/06/2024 11:29 AM EDT us Radha Recinos MD LAB BLOOD ORDERABLES Fin al Result [facility] [address] [place] [phone] * (ABNORMAL) Comprehensive Metabolic Panel (09/06/2024 10:29 AM EDT) Sodium 141 135 - 145 mmol/L [facility] Potassium 4.6 3.3 - 5.1 mmol/L [facility] Chloride 109(H) 96 - 108 mmol/L [facility] Carbon Dioxide 26 22 - 29 mmol/L [facility] Anion Gap 11(L) 12 - 20 [facility] Urea Nitrogen (BUN) 6(L) 9 - 16 mg/dL [facility] Creatinine, Serum 0.74 0.5 - 1.4 mg/dL [facility] Estimated Glomerular Filt Rate >60 [facility] Comment:Chronic Kidney Disea se: Estimated GFR < 60 mL/min/1.33j1Hevyaq Kidney Disease: Estimated GFR < 15 mL/min/1.73m2 Glucose 100 60 - 115 mg/dL [facility] Calcium 9.1 8.4 - 10.2 mg/dL [facility] Bilirubin, Total 0.5 0.0 - 1.0 mg/dL [facility] Aspartate Amino Transferase 18 5 - 31 U/L [facility] Alanine Aminotransferase 27 0 - 31 U/L [facility] Total Protein 7.8 6.5 - 8.0 g/dL [facility] Albumin Level 4.4 3.5 - 5.0 g/dL [facility] Alkaline Phosphatase 26(L) 39 - 117 U/L [facility] Blood Venous blood specimen / Unknown 09/06/2024 10:29 AM EDT 09/06/2024 11:29 AM EDT us Radha Recinos MD LAB BLOOD ORDERABLES Fin al Result [facility] [address] [place] [phone] from Last 3 Months Insurance [facility] - [facility] FULL (MEDICAID) DENTAL-[place] LIMITED ADULT Care Teams Matrix Repairer Relationship Specialty Start Date End Date Radha Recinos MD [address] [place] [phone] PCP - General Internal Medicine 08/30/24
--- OUTSIDE RECORDS SUMMARY | 2024-11-07 17:53 | XMS_ITS | Encounter Summary ---
Author Organization [employer] Address [address] [facility] [address] [place] [id number] Care Team Providers Care Branch Associate Teller Name Role Phone Radha Recinos MD Primary Care Provider + Reason for Visit * Reason Onset Date Comments rs missed appt 08/16/2024 Encounter Details Date Type Department Care Team (Late st Contact Info) Description 08/16/2024 Telephone [facility] [address] [place] [address] Gogo Constantino [address] [place] [address] rs missed appt Social History Tobacco Use [...] Description 11/28/2024 11:00 AM EDT Office Visit [facility] [address] [place] [address] Chastity Torre [address] [place] [address] 12/12/2024 11:15 AM EDT Office Visit [facility] [address] [place] [address] Ashleigh Maggie, OD [address] [place] [address] 01/25/2025 11:30 AM EDT Office Visit [facility] [address] [place] [address] Radha Recinos MD [address] [place] [address] documented as of this encounter Visit Diagnoses Not on filedocumented in this encounter Care Teams Branch Associate Teller Relationship Specialty Start Date End Date Radha Recinos MD [address] [place], [place] [phone] PCP - General Internal Medicine 08/30/24 documented as of this encounter
== END 2024-11-07 17:52 | disposition home or self-care (01) ==
LOC: HO.MRI 17:51
PROVIDERS: PCP Internal Medicine; Visit Provider Internal Medicine
DX: R51.9 Headache, unspecified (principal)
CPT/HCPCS: 70551

== ENCOUNTER 2024-12-08 16:28 | Emergency (ER) | payer MEDICAID, OTHER, SELFPAY ==
[2024-12-08 16:30] VITALS: BP 128/83; PULSE 83; RESP 18; TEMP 37.2; O2SAT 100; BMI 22.6
--- NOTE | 2024-12-08 16:44 | ECG_ITS ---
Test Reason : WEAKNESS Blood Pressure : */* mmHG Vent. Rate : 73 BPM Atrial Rate : 73 BPM P-R Int : 140 ms QRS Dur : 82 ms QT Int : 382 ms P-R-T Axes : 41 96 51 degrees QTcB Int : 420 ms Normal sinus rhythm Rightward axis Borderline ECG No previous ECGs available Referred By: Edson Linder Electronically Signed By: SHANON MATIAS MD
--- NOTE | 2024-12-08 16:44 | ED.GENADULT ---
HPI - General Adult General Chief complaint: General Medical Stated complaint: right leg pain,burning in eyes Time Seen by Provider: 12/08/24 21:09 Related Data Allergies Allergy/AdvReac Type Severity Reaction Status Date / Time No Known Allergies Allergy Verified 12/08/24 16:31 [facility] Social History Social History Smoked in Last 30 Days: No Advance Directives: No Advance Directives Information Provided: No Patient : No Physical Exam ED Vital Signs: Vital Signs - 24 hr 12/08/24 16:30 12/08/24 18:00 12/08/24 20:39 Temperature 99.0 F 98.2 F 98.3 F Pulse Rate 83 80 64 Respiratory Rate 18 13 16 Blood Pressure 128/83 122/74 93/49 L Pulse Oximetry 100 100 100 Oxygen Delivery Method Room Air Room Air Room Air 12/08/24 21:08 Temperature 99.5 F Pulse Rate 77 Respiratory Rate 18 Blood Pressure 102/62 Pulse Oximetry 98 Oxygen Delivery Method Room Air BMI result Body Mass Index 22.6 Course Course Course Narrative: RME, this is a rapid medical exam performed by Tyler Linder please refer to primary provider for complete H&P- 29 old female presents for evaluation of multiple complaints including headache, body aches, itchy eyes. She also reports that she had a stroke aged 17 in 2 days ago had some numbness and weakness in her right hand. She has an NIH stroke score is 0. Plan for labs. Medical Decision Making Lab Data 12/08/24 17:07 12/08/24 17:07 Labs: Lab Results 12/08/24 12/08/24 Range/Units 17:07 19:29 WBC 2.2 L (4.8-10.8) X10*3/uL RBC 4.77 (4.20-5.50) X10*6/uL Hgb 12.9 (12.0-16.0) g/dl Hct 39.5 (37.0-47.0) % MCV 82.8 (80.0-98.0) fL MCH 27.0 (27.0-33.0) pg MCHC 32.7 (31.0-35.0) g/dl RDW 13.6 (11.0-16.0) % Plt Count 175 D (160-400) X10*3/uL MPV 10.6 (9.4-12.3) fL Immature Gran % (Auto) 0.9 H (0.0-0.4) % Neut % (Auto) 54.3 (45-73) % Lymph % (Auto) 29.7 (20-40) % Mccormick % (Auto) 13.7 H (2-11) % Eos % (Auto) 0.5 (0-4) % Baso % (Auto) 0.9 (0-2) % Lymph # (Auto) 0.7 L (1.2-4.9) X10*3/uL Mccormick # (Auto) 0.3 (0.1-1.2) X10*3/uL Eos # (Auto) 0.0 (0.0-0.4) X10*3/uL Baso # (Auto) 0.0 (0.0-0.2) X10*3/uL Abs Immat Gran (auto) 0.02 (0.00-0.03) X10*3/uL Absolute Neuts (auto) 1.2 L (2.0-8.3) x10*3/uL Absolute Nucleated RBC 0.000 (0.0-0.012) X10*3/uL Nucleated RBC % (auto) 0.0 (0.0-0.2) /100WBC Smear Tech's Comments VERIFIED Sodium 142 (135-145) mmol/L Potassium 4.0 (3.3-5.1) mmol/L Chloride 105 (96-108) mmol/L Carbon Dioxide 30 H (22-29) mmol/L Anion Gap 11 L (12-20) BUN 10 (9-16) mg/dL Creatinine 0.62 (0.5-1.4) mg/dL Estim Creat Clear Calc 119.3 Estimated GFR > 60 Random Glucose 99 (60-115) mg/dL Calcium 9.3 (8.4-10.2) mg/dL Total Bilirubin 0.3 (0.0-1.0) mg/dL AST 22 (5-31) U/L ALT 23 (0-31) U/L Alkaline Phosphatase 30 L (39-117) U/L Troponin I High Sens 2.8 (<3.5-17.0) ng/L Total Protein 7.3 (6.5-8.0) g/dL Albumin 4.7 (3.5-5.0) g/dL Lipase 19 (8-78) U/L Beta HCG, Quant < 2 mIU/mL Urine Color Yellow Urine Appearance Clear Urine pH 6.5 (5.0-9.0) Ur Specific [place] 1.015 (1.005-1.025) Urine Protein Negative (Neg-Trace) mg/dL Urine Glucose (UA) Negative (Negative) mg/dL Urine Ketones Negative (Negative) mg/dL Urine Blood Negative (Negative) Urine Nitrite Negative (Negative) Ur Leukocyte Esterase Negative (Negative) Urine RBC 0-2 (0-2) /HPF Urine WBC 0-5 (0-5) /HPF Ur Squamous Epith Cells 0-2 (0-2) /HPF Urine Bacteria None Seen (None Seen) Hyaline Casts 0-2 (0-2) /LPF Urine Opiates Screen Not Detected (Not Detect) Ur Buprenorphine Scrn Not Detected (Not Detect) ng/mL Ur Oxycodone Screen Not Detected (Not Detect) ng/mL Urine Methadone Screen Not Detected (Not Detect) ng/mL Urine Fentanyl Screen Not Detected (Not Detect) Ur Barbiturates Screen Not Detected (Not Detect) Ur Phencyclidine Scrn Not Detected (Not Detect) Ur Amphetamines Screen Not Detected (Not Detect) U Benzodiazepines Scrn Not Detected (Not Detect) Urine Cocaine Screen Not Detected (Not Detect) U Marijuana (THC) Screen Not Detected (Not Detect) Influenza Type A (PCR) NEGATIVE (Negative) Influenza Type B (PCR) NEGATIVE (Negative) RSV RNA Qual (PCR) NEGATIVE (Negative) SARS-CoV-2 RNA (RT-PCR) NEGATIVE (Negative) Discharge Plan Discharge Clinical Impression: Acute leg pain, Headache, Leukopenia Patient Disposition: Home, Self-Care Instructions: Leg Pain (ED) Additional Instructions: DISCHARGE DIAGNOSES: Right leg pain unclear cause. DVT or deep vein thrombosis blood clot has been ruled out on the right side Headache, resolved unclear cause Low white blood cell count specifically low lymphocytes of unclear cause needs further workup HISTORY OF PRESENTATION: ?Headache, right hip leg pain and subjective swelling of the ankle without injury EMERGENCY DEPARTMENT COURSE,TESTS, TREATMENTS: While in the ED today you had basic blood work mostly normal and reassuring except for nonspecific slightly low white blood cell count specifically low lymphocytes of unclear cause may need repeat blood count test in several weeks please call your primary doctor to follow up with this. DVT ultrasound or blood clot test of the right leg was negative. Your examination did not suggest fracture or other bony or other emergent causes. You did not have a headache in the emergency department and we did not pursue any imaging or other specific testing but discuss this with your primary doctor. You told the triage know that you had felt some abnormal strength in your right hand, when we discussed this together you told me that this was long time ago when you were 17 and you occasionally get this with some frequency when you develop a headache but you did not have this today. Your neurologic exam in the emergency department was normal and reassuring without weakness sensation deficits or other abnormalities fine DISCHARGE MEDICATIONS: ?[We have made no changes to your regular medication regimen] FOLLOW-UP: ?Call your primary or general physician soon as possible to discuss your symptoms, your ED visit and to discuss follow up plans Call your primary doctor for follow up INSTRUCTIONS ?& RETURN PRECAUTIONS: If any symptoms change first call your primary physician, if it is after-hours your primary doctors office should have a provider ironworker apprentice shop you can speak with. If the symptoms are severe or very concerning to you then call 911 or return to the ED. If you develop worsening pain or swelling of the ankle or leg call your primary doctor or return to the emergency department for further workup or repeat ultrasound in your right leg Brennen Qiu MD Emergency Physician [facility] Print Language: Yemeni
[2024-12-08 17:29] LABS: Alanine Aminotransferase 23 U/L (0-31); Albumin Level 4.7 g/dL (3.5-5.0); Alkaline Phosphatase 30 U/L (39-117); Anion Gap 11 (12-20); Aspartate Amino Transferase 22 U/L (5-31); Bilirubin Total 0.3 mg/dL (0.0-1.0); Blood Urea Nitrogen 10 mg/dL (9-16); Calcium 9.3 mg/dL (8.4-10.2); Carbon Dioxide 30 mmol/L (22-29); Chloride 105 mmol/L (96-108); Creatinine Clr Calc Pharmacy 119.3; Estimated Glomerular Filt Rate > 60; Glucose Random 99 mg/dL (60-115); Lipase 19 U/L (8-78); Sodium 142 mmol/L (135-145); Total Protein 7.3 g/dL (6.5-8.0)
[2024-12-08 17:36] LABS: Troponin-I High Sensitivity 2.8 ng/L (<3.5-17.0)
[2024-12-08 17:37] LABS: HCG Quantitative < 2 mIU/mL
[2024-12-08 17:38] LABS: Basophils Percent Auto 0.9 % (0-2); Eosinophils Percent Auto 0.5 % (0-4); Hematocrit 39.5 % (37.0-47.0); Hemoglobin 12.9 g/dl (12.0-16.0); Imm Gran Abs Auto 0.02 X10*3/uL (0.00-0.03); Imm Gran Pct Auto 0.9 % (0.0-0.4); Lymphocytes Absolute Auto 0.7 X10*3/uL (1.2-4.9); Lymphocytes Percent Auto 29.7 % (20-40); MANUAL DIFF FLAG SCAN; Mean Corpuscular HGB Conc 32.7 g/dl (31.0-35.0); Mean Corpuscular Volume 82.8 fL (80.0-98.0); Mean Platelet Volume 10.6 fL (9.4-12.3); Monocytes Absolute Auto 0.3 X10*3/uL (0.1-1.2); Monocytes Percent Auto 13.7 % (2-11); Neutrophils Absolute Auto 1.2 x10*3/uL (2.0-8.3); Neutrophils Percent Auto 54.3 % (45-73); Platelet Count 175 X10*3/uL (160-400); Red Blood Count 4.77 X10*6/uL (4.20-5.50); Red Cell Distribution Width 13.6 % (11.0-16.0); SCAN SMEAR FLAG 1
[2024-12-08 17:39] LABS: White Blood Count 2.2 X10*3/uL (4.8-10.8)
[2024-12-08 17:51] LABS: Influenza A PCR NEGATIVE (Negative); Influenza B PCR NEGATIVE (Negative); Resp Syncy Virus RNA Qual PCR NEGATIVE (Negative); SARS COV2 PCR INHOUSE NEGATIVE (Negative)
[2024-12-08 18:00] VITALS: BP 122/74; PULSE 80; RESP 13; TEMP 36.8; O2SAT 100
[2024-12-08 18:12] LABS: SLIDE REVIEW VERIFIED
--- OUTSIDE RECORDS SUMMARY | 2024-12-08 18:23 | XMS_ITS | Encounter Summary ---
Author Organization [employer] Address [address] [facility] 7[address] [place] [address] Care Team Providers Care Bundle Cutter Name Role Phone Radha Recinos MD Primary Care Provider + Reason for Visit * Reason Comments endo RCT # 15 Encounter Details Date Type Department Care Team (Late st Contact Info) Description 12/05/2024 10:00 AM EDT Office Visit [facility] ADULT DENTAL [address] [place] [address] RandyHeena fosterricio [address] [place] [address] Social History Tobacco Use Types Packs/Day Years Used Date Smoking Tobacco: Never Passive Smoke Exposure: Never Smokeless Tobacco: Never Alcohol Use Standard [...] past 12 months, has t he electric, [employer], oil or water [employer] threatened to shut off services in your [...] Sign Reading Time Taken Comments Blood Pressure 120/72 12/05/2024 10:11 AM EDT Pulse 73 12/05/2024 10:11 AM EDT Temperature - - Respiratory Rate - - Oxygen Saturation - - Inhaled Oxygen Concentration - - Weight - - Height - - Body Mass Index - - documented in this encounter Progress Notes * Jett Padilla - 12/05/2024 10:00 AM EDT Dental procedures in this visit [id number] - ENDODONTIC THERAPY, MOLAR TOOTH 15 (Completed) Service provider: Jett Landaverde provider: Chris Pinedo DDS [id number] - CASE PRESENTATION, DETAILED AND EXTENSIVE TREATMENT PLANNING (Completed) Service provider: Jett Landaverde provider: Chris Pinedo DDS Patient ID: Winnie Adrian is a 29 y.o. female. Time Out: Date: 12/05/2024 Location: [facility] Tooth: #15 Procedure: Root Canal Verified the above with patient, equity sales assistant, and provider. Confirmed via patient's chart, intraorally and by radiographs. Head Porter Baggage: not applicable Root Canal Treatment done on # [address] Jett Padilla Risk, benefits, and alternatives discussed with the patient. CONSENT FORM INITIALED & SIGNED BY THE PATIENT AND COUNTERSIGNED BY Dr. Jett Padilla Medical history: Reviewed in EHR Vitals: Blood pressure 120/72, pulse 73. Allergies: Reviewed in EHR Medications: Reviewed in EHR - LA: 20% topical benzocaine; Local infiltration with 1 carpule 4% septocaine/articaine 1:100,000 epinephrine - Rubber dam placed and tooth isolated. - Decay removed. - Access opening done. - Canal found. - Canal length - 17 mm B and L - Last HAND FILE used at apex: # 20 - Recapitulation done using size 20 hand files. - Irrigation done using Sodium Hypochlorite - Canal enlarged by CROWN DOWN TECHNIQUE/Step-back using ROTARY - RC prep (last file to apex was rotary / hand file size) - 1 PA taken of last file used. - Irrigation done using Sodium Hypochlorite - Canal dried using paper points. - Aurora-percha cone length confirmed with 1 PA - tug-back confirmed. - Canal sealed using root canal bioceramic sealer + size F1 aurora percha cone - Cotton pellet placed. - Temporary gnosticist done using Ionoseal - Post-obturation periapical radiograph taken - post op instructions given. NV: RCT #14 Patient satisfied, left in stable condition Provider: Dr. Jett Padilla Admissions Evaluator: Arjun Snowden Supervising Dentist: Dr. Pinedo * Chris Pinedo DDS - 12/05/2024 10:00 AM EDT Reviewed. Chris Pinedo DDS documented in this encounter Plan of Treatment Upcoming Encounters Date Type Department Care Team (Late st Contact Info) Description 12/12/2024 11:15 AM EDT Office Visit [facility] OPTOMETRY [address] [place] [address] TarkaMaggie, OD [address] [place] [address] 12/12/2024 1:00 PM EDT Office Visit [facility] ADULT DENTAL [address] [place] [address] Breann Ha DDS [address] [place] [address] 01/16/2025 9:00 AM EDT Office Visit [facility] ADULT DENTAL [address] [place] [address] Chastity Torre [address] [place] [address] 01/25/2025 11:30 AM EDT Office Visit [facility] MEDICINE [address] [place] [address] Radha Recinos MD [address] [place] [address] documented as of this encounter Procedures Procedure Name Priority Date/Time Associated Diagnosis Comments 15 ENDODONTIC THERAPY, MOLAR TOOTH Routine 12/05/2024 10:00 AM EDT CASE PRESENTATION, DETAILED AND EXTENSIVE TREATMENT PLANNING Routine 12/05/2024 10:00 AM EDT documented in this encounter Visit Diagnoses Not on filedocumented in this encounter Additional Health Concerns Assessment Noted Time PHQ-9 Depression Total Score: 4 10/29/19 10:08 AM EDT documented as of this encounter Care Teams Bundle Cutter Relationship Specialty Start Date End Date Radha Recinos MD [address] [place] [id number] PCP - General Internal Medicine 08/30/24 documented as of this encounter
[2024-12-08 19:41] LABS: Appearance Urine Clear; Color Urine Yellow; Glucose Urine UA Negative (Negative); Leukocyte Esterase Urine Negative (Negative); Nitrite Urine Negative (Negative); PH 6.5 (5.0-9.0); Specific Gravity - Urine 1.015 (1.005-1.025); Urine Blood Negative (Negative); Urine Ketones Negative (Negative); Urine Protein Negative (Neg-Trace)
[2024-12-08 19:46] LABS: Bacteria Urine None Seen (None Seen); Hyaline Casts Urine 0-2 /LPF (0-2); RBC Urine 0-2 /HPF (0-2); Squamous Epithelial Cell Urine 0-2 /HPF (0-2); WBC Urine 0-5 /HPF (0-5)
[2024-12-08 19:50] LABS: Amphetamine Screen Urine Not Detected (Not Detect); Barbiturates, Urine Not Detected (Not Detect); Benzodiazepines Screen Urine Not Detected (Not Detect); Buprenorphine Scr Not Detected (Not Detect); Cannabinoid Screen Urine Not Detected (Not Detect); Cocaine Screen Urine Not Detected (Not Detect); Fentanyl, urine Not Detected (Not Detect); Methadone Screen, Urine Not Detected (Not Detect); Opiate Screen Urine Not Detected (Not Detect); Oxycodone Screen Urine Not Detected (Not Detect); Phencyclidine Screen Urine Not Detected (Not Detect)
[2024-12-08 20:39] VITALS: BP 93/49; PULSE 64; RESP 16; TEMP 36.8; O2SAT 100
[2024-12-08 21:08] VITALS: BP 102/62; PULSE 77; RESP 18; TEMP 37.5; O2SAT 98
[2024-12-08 23:50] VITALS: BP 102/63; PULSE 65; RESP 16; TEMP 36.7; O2SAT 99
--- NOTE | 2024-12-08 23:57 | PC.NURSE ---
Took over care from PRO carlos, reviewed discharge instructions with pt, pt verbalized understanding, no sign of distress.
[2024-12-08 23:58] VITALS: BP 102/63; PULSE 65; RESP 16; TEMP 36.7; O2SAT 99
== END 2024-12-08 23:59 | disposition home or self-care (01) ==
PROVIDERS: Physician Assistant; Emergency Provider Emergency Medicine
DX: M79.604 Pain in right leg (principal); H57.13 Ocular pain, bilateral; R51.9 Headache, unspecified; D72.819 Decreased white blood cell count, unspecified; M79.10 Myalgia, unspecified site; R10.2 Pelvic and perineal pain; R20.0 Anesthesia of skin; Z51.81 Encounter for therapeutic drug level monitoring; Z79.899 Other long term (current) drug therapy; Z03.818 Encounter for observation for suspected exposure to other biological agents ruled out; Z86.73 Personal history of transient ischemic attack (TIA), and cerebral infarction without residual deficits
CPT/HCPCS: 0241U; 36415; 80053; 80307; 81001; 83690; 84484; 84702; 85025; 93005; 99284; 99285

== ENCOUNTER → 2024-12-08 16:44 | Outpatient (BNV) | payer SELFPAY | PROVIDERS: Emergency Provider Emergency Medicine; Visit Provider Internal Medicine Cardiovascular Disease | DX: R53.1 Weakness (principal) | CPT/HCPCS: 93010 ==

== ENCOUNTER 2024-12-19 12:57 | Outpatient (REF) | payer MEDICAID, OTHER, SELFPAY ==
--- OUTSIDE RECORDS SUMMARY | 2024-12-19 14:20 | XMS_ITS | Encounter Summary ---
Author Organization [employer] Address [address] [facility] [address] [address] 7[address] [place] [address] Care Team Providers Care Finance Administrator Name Role Phone Radha Recinos MD Primary Care Provider + Encounter Details Date Type Department Care Team (Latest Contact Info) Description 12/19/2024 Travel Social History Tobacco Use Types Packs/Day Years [...] your housing situation today? I have allie isaac 10/28/[address] you li [...] AM EDT documented as of this encounter Plan of Treatment Upcoming Encounters Date Type Department Care Team (Late st Contact Info) Description 01/16/2025 9:00 AM EDT Office Visit [facility] ADULT DENTAL [address] [place] [address] Nicho, Chastity [address] [place] [address] 01/25/2025 11:30 AM EDT Office Visit [facility] MEDICINE [address] [place] [address] Radha Recinos MD [address] [place], [place] [phone] documented as of this encounter Visit Diagnoses Not on filedocumented in this encounter Additional Health Concerns Assessment Noted Time PHQ-9 Depression Total Score: 4 10/29/19 25 10:08 AM EDT documented as of this encounter Care Teams Finance Administrator Relationship Specialty Start Date End Date Radha Recinos MD [address] [place] [address] [phone] PCP - General Internal Medicine 08/30/24 documented as of this encounter
[2024-12-19 14:36] LABS: Bacterial Vaginosis PCR NEGATIVE (Negative); Candida Group PCR DETECTED (Not Detect); Candida glab krusei PCR DETECTED (Not Detect); Trichomonas vaginalis PCR NOT DETECTED (Not Detect)
== END 2024-12-19 12:58 | disposition home or self-care (01) ==
LOC: HO.HHCLNP 12:57
PROVIDERS: Visit Provider Internal Medicine
DX: N89.8 Other specified noninflammatory disorders of vagina (principal)
CPT/HCPCS: 81515

== ENCOUNTER 2025-01-25 12:00 | Outpatient (REF) | payer MEDICAID, OTHER, SELFPAY ==
--- OUTSIDE RECORDS SUMMARY | 2025-01-25 13:55 | XMS_ITS | Encounter Summary ---
Author Organization [employer] Address [address] [facility] [address] [place] [address] Care Team Providers Care Transportation Department Head Name Role Phone Radha Recinos MD Primary Care Provider + Encounter Details Date Type Department Care Team (Latest Contact Info) Description 01/25/2025 Travel Social History Tobacco Use Types Packs/Day Years Used Date Smoking Tobacco: Never Passive Smoke Exposure: Never Smokeless Tobacco: Never Alcohol Use Standard Drinks/Week Comments Never 0 (1 standard drink = 0.6 oz pur e alcohol) Depression Answer Date Recorded Patient Health Questionnaire-9 Score 15 12/20/2024 Patient Health Questionnaire-9 Score 15 12/20/2024 Last PHQ-9: Questionnaire Data Not on file 0 12/20/2024 Housing Stability Answer Date Recorded What is [...] Answer Date Recorded Patient Health Questionnaire-2 Score 4 12/20/2024 Internet Access Answer Date Recorded Internet Access [...] as of this encounter Plan of Treatment Not on file documented as of this encounter Visit Diagnoses Not on filedocumented in this encounter Additional Health Concerns Assessment Noted Time PHQ-9 Depression Total Score: 15 025 2:33 PM EDT documented as of this encounter Care Teams Transportation Department Head Relationship Specialty Start Date End Date Radha Recinos MD [address] [place] [id number] PCP - General Internal Medicine 08/30/24 documented as of this encounter
[2025-01-25 15:09] LABS: Bacterial Vaginosis PCR NEGATIVE (Negative); Candida Group PCR DETECTED (Not Detect); Candida glab krusei PCR DETECTED (Not Detect); Trichomonas vaginalis PCR NOT DETECTED (Not Detect)
[2025-01-25 16:07] LABS: CT PCR NOT DETECTED (Not Detect.); NG PCR NOT DETECTED (Not Detect.)
== END 2025-01-25 12:01 | disposition home or self-care (01) ==
LOC: HO.LNP 12:00
PROVIDERS: Visit Provider Internal Medicine
DX: N89.8 Other specified noninflammatory disorders of vagina (principal); N93.8 Other specified abnormal uterine and vaginal bleeding; Z11.8 Encounter for screening for other infectious and parasitic diseases
CPT/HCPCS: 81515; 87491; 87591

== ENCOUNTER 2025-04-17 13:24 | Outpatient (REF) | payer MEDICAID, OTHER, SELFPAY ==
--- OUTSIDE RECORDS SUMMARY | 2025-04-17 11:15 | XMS_ITS | Encounter Summary ---
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), not intractable; Panic attacks; Cervical paraspinal muscle spasm; Breast tenderness in female Social History Tobacco Use Types Packs/Day Years Used Date Smoking Tobacco: Never Passive Smoke Exposure: Never Smokeless Tobacco: Never Alcohol Use Standard Drinks/Week Comments Never 0 (1 standard drink = 0.6 oz pur e alcohol) Depression Answer Date Recorded Patient Health Questionnaire-9 Score 21 04/17/2025 Patient Health Questionnaire-9 Score 21 04/17/2025 Last PHQ-9: Questionnaire Data Not on file 1 Housing Stability Answer Date Recorded What is [...] Answer Date Recorded Patient Health Questionnaire-2 Score 6 04/17/2025 Internet Access Answer Date Recorded Internet Access [...] Sign Reading Time Taken Comments Blood Pressure 115/82 04/17/2025 11:54 AM EDT Pulse 64 04/17/2025 11:54 AM EDT Temperature 37.1 C (98.7 F) 04/17/2025 11:54 AM EDT Respiratory Rate 16 04/17/2025 11:54 AM EDT Oxygen Saturation 99% 04/17/2025 11:54 AM EDT Inhaled Oxygen Concentration - - Weight 65 kg (143 lb 6.4 oz) 04/17/2025 11:54 AM EDT Height 161.3 cm (5' 3.5 ) 04/17/2025 11:54 AM ED T Body Mass Index 25 04/17/2025 11:54 AM EDT documented in this encounter Functional Status * Over the past 2 weeks, how often have you been bothered by any of the following problems? Question Answer Date of Assessment Author Patient Health Questionnaire -2 Score 6 04/17/2025 11:55 AM EDT Jai Pacheco [place] * Little interest or pleasure in doing things Answer Date of Assessment Author Nearly every day 04/17/2025 11:55 AM EDT Jai Pacheco [place] * Feeling down, depressed, or hopeless Answer Date of Assessment Author Nearly every day 04/17/2025 11:55 AM EDT Jai Pacheco [place] * Trouble falling or staying asleep, or sleeping too much Answer Date of Assessment Author Nearly every day 04/17/2025 11:55 AM Jai Kolb [place] * Feeling tired or having little energy Answer Date of Assessment Author Nearly every day 04/17/2025 11:55 AM Jai Kolb [place] * Poor appetite or overeating Answer Date of Assessment Author Nearly every day 04/17/2025 11:55 AM Jai Kolb [place] * Feeling bad about yourself - or that you are a failure or have let yourself or your family down Answer Date of Assessment Author More than half the days 04/17/2025 11:55 AM Jai Kolb [place] * Trouble concentrating on things, such as reading the newspaper or watching television Answer Date of Assessment Author More than half the days 04/17/2025 11:55 AM Jai Kolb [place] * Moving or speaking so slowly that other people could have noticed? Or the opposite - being so fidgety or restless that you have been moving around a lot more than usual. Answer Date of Assessment Author More than half the days 04/17/2025 11:55 AM Jai Kolb MA * Thoughts that you would be better off or hurting yourself in some way Answer Date of Assessment Author Not at all 04/17/2025 11:55 AM Jai Kolb MA * Patient Health Questionnaire-9 Score Answer Date of Assessment Author 21 04/17/2025 11:55 AM Jai Kolb [place] * How difficult have these problems made it for you to do your work, take care of things at home, or get along with other people? Answer Date of Assessment Author Extremely difficult 04/17/2025 11:55 AM Jai Funk MA * Over the last 2 weeks, how often have you been bothered by any of the following problems? Question Answer Date of Assessment Author Feeling nervous, anxious, or on edge 3 04/17/2025 11:56 AM Jai Kolb MA Not being able to stop or co ntrol worrying 3 04/17/2025 11:56 AM EDT Jai Pacheco MA Worrying too much about diff erent things 3 04/17/2025 11:56 AM EDT Jai Pacheco MA Trouble relaxing 3 04/17/2025 11:56 AM EDT Jai Pacheco MA Being so restless that it is hard to sit still 3 04/17/2025 11:56 AM EDT Jai Pacheco MA Becoming easily annoyed or irritable 3 04/17/2025 11:56 AM EDT Jai Pacheco MA Feeling afraid as if somethi ng awful might happen 3 04/17/2025 11:56 AM EDT Jai Pacheco MA HECTOR-7 Total Score 21 04/17/2025 11:56 AM EDT Jai Pacheco MA documented as of this encounter Plan of Treatment Upcoming Encounters Date Type Department Care Team (Late st Contact Info) Description 04/24/2025 9:00 AM EDT Office Visit [facility] ADULT DENTAL [address] [place] [address] Lloyd Moreno, DMD [address] [place] [address] 05/01/2025 2:30 PM EST Office Visit [facility] ADULT D[facility] [address] [place] [address] Chris Pinedo, DDS [address] [place] [address] Scheduled Orders Name Type Priority Associated Diagnoses Orde r Schedule TSH W/Reflex to FT4 Lab Routine Breast tenderness in female Expected: 04/17/2025 (Approximate), Expires: 04/17/2026 hCG, Total, Quantitative Lab Routine Breast tenderness in female Expected: 04/17/2025 (Approximate), Expires: 04/17/2026 Prolactin Lab Routine Breast tenderness in female Expected: 04/17/2025 (Approximate), Expires: 04/17/2026 documented as of this encounter Visit Diagnoses Diagnosis HECTOR (generalized anxiety disorder)- Primary Generalized anxiety disorder 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
--- OUTSIDE RECORDS SUMMARY | 2025-04-17 16:28 | XMS_ITS | Encounter Summary ---
Author Organization [employer] Address [address] [facility] [address] [place] [address] Care Team Providers Care Outboard Motor Tester Name Role Phone Radha Recinos MD Primary Care Provider + Encounter Details Date Type Department Care Team (Latest Contact Info) Description 04/17/2025 Travel Social History Tobacco Use Types Packs/Day [...] AM EDT documented as of this encounter Functional Status * Over the [...] 11:55 AM Jai Kolb [place] * Feeling down, depressed, or hopeless Answer Date of Assessment Author Nearly every day 04/17/2025 11:55 AM Jai Kolb [place] * Trouble falling or staying asleep, [...] of Assessment Author 21 04/17/2025 11:55 AM KEISHAT Jai Pacheco MA * How difficult have these problems made it for you to do your work, take care of things at home, or get along with other people? Answer Date of Assessment Author Extremely difficult 04/17/2025 11:55 AM EDT Jai Chin MA * Over the last 2 weeks, how often have you been bothered by any of the following problems? Question Answer Date of Assessment Author Feeling nervous, anxious, or on edge 3 04/17/2025 11:56 AM EDT Jai Pacheco MA Not being able to stop or co ntrol worrying 3 04/17/2025 11:56 AM KEISHAT Jai Pacheco MA Worrying too much about diff erent things 3 04/17/2025 11:56 AM KEISHAT Jai Pacheco MA Trouble relaxing 3 04/17/2025 11:56 AM KEISHAT Jai Pacheco MA Being so restless that it is hard to sit still 3 04/17/2025 11:56 AM Jai Kolb MA Becoming easily annoyed or irritable 3 04/17/2025 11:56 AM KEISHAT Jai Pacheco MA Feeling afraid as if somethi ng awful might happen 3 04/17/2025 11:56 AM KEISHAT Jai Pacheco MA HECTOR-7 Total Score 21 04/17/2025 11:56 AM Jai Kolb MA documented as of this encounter Plan of Treatment Upcoming Encounters Date Type Department Care Team (Late st Contact Info) Description 04/24/2025 9:00 AM EDT Office Visit [facility] ADULT DENTAL [address] [place] [address] Lloyd Moreno, DMD [address] [place] [address] 05/01/2025 2:30 PM EST Office Visit [facility] ADULT DENTAL [address] [place] [address] Chris Pinedo DDS [address] [place] [address] documented as of this encounter Visit Diagnoses Not on filedocumented in this encounter Additional Health Concerns Assessment Noted Time PHQ-9 Depression Total Score: 21 025 11:55 AM EDT documented as of this encounter Care Teams Outboard Motor Tester Relationship Specialty Start Date End Date Radha Recinos MD [address] [place] [id number] PCP - General Internal Medicine 08/30/24 documented as of this encounter
--- OUTSIDE RECORDS SUMMARY | 2025-04-17 16:28 | XMS_ITS | Encounter Summary ---
Author Organization [employer] Address [address] [facility] [address] [place] [address] Care Team Providers Care Oyster Sorter Name Role Phone Radha Recinos MD Primary Care Provider + Reason for Visit * Reason Onset Date Comments Chart Prep 04/14/2025 Encounter Details Date Type Department Care Team (Late st Contact Info) Description 04/14/2025 Telephone [facility] MEDICINE [address] [place], [place] [phone] Radha Recinos MD [address] [place], [place] [phone] Chart Prep Social History Tobacco Use Types Packs/Day Years Used Date Smoking Tobacco: Never Passive Smoke Exposure: Never Smokeless Tobacco: Never Alcohol Use Standard Drinks/Week Comments Never 0 (1 standard drink = 0.6 oz pur e alcohol) Depression Answer Date Recorded Patient Health Questionnaire-9 Score 14 03/06/2025 Patient Health Questionnaire-9 Score 14 03/06/2025 Last PHQ-9: Questionnaire Data Not on file 0 03/06/2025 Housing Stability Answer Date Recorded What is [...] Date Recorded Patient Health Questionnaire-2 Score 4 03/06/2025 Internet Access Answer Date Recorded Internet Access [...] encounter Miscellaneous Notes * Telephone Encounter - Darleen Barrett MA - 04/14/2025 2:27 PM EDT Chart Prep Labs: done Images: not applicable Referrals: Pt declined appt Vaccines due: Covid, Flu, Tdap, Hep B, and HPV Screenings: pap smear, LMP, and PISQ Overdue care gaps: PHQ-9 and HECTOR-7 documented in this encounter Plan of Treatment Upcoming Encounters Date Type Department Care Team (Late st Contact Info) Description 04/24/2025 9:00 AM EDT Office Visit [facility] ADULT DENTAL [address] [place] [address] Lloyd Moreno, DMD [address] [place] [address] 05/01/2025 2:30 PM EST Office Visit [facility] ADULT DENTAL [address] [place] [address] Chris Pinedo DDS [address] [place] [address] documented as of this encounter Visit Diagnoses Not on filedocumented in this encounter Additional Health Concerns Assessment Noted Time PHQ-9 Depression Total Score: 14 025 8:52 AM EDT documented as of this encounter Care Teams Oyster Sorter Relationship Specialty Start Date End Date Radha Recinos MD [address] [place] [phone] PCP - General Internal Medicine 08/30/24 documented as of this encounter
--- OUTSIDE RECORDS SUMMARY | 2025-04-17 16:28 | XMS_ITS | Clinical Summary ---
Author Organization [employer] Address [address] [facility] [address] [place] [address] Care Team Providers Care Life Skills Worker Name Role Phone Radha Recinos MD Primary Care Provider + Allergies Active Allergy Reactions Criticality Noted Date Comments Amitriptyline Rash Low 12/19/2024 Fluconazole Rash Low 01/25/2025 Medications * This document contains information received from the source organization and may not represent a complete record from that organization. Blood Pressure Monitoring (Blood Pressure Cuff) misc Use daily as prescribed 1 each 5 Active SUMAtriptan (Imitrex) 50 MG tablet Take 1 tablet (50 mg) by mouth 1 (one) time if needed for migraine for up to 36 doses. May repeat dose once in 2 hours if no relief. Do not exceed 2 doses in 24 hours. 9 tablet 3 5 Active chlorhexidine (Peridex) 0.12 % solutionIndicat ions:Alveolitis of jaw, left Swish 15 mL morning and night for 1 minute. Spit, do not swallow. Do not eat or drink for 30 minutes following use. 473 mL 5 Active chlorhexidine (Peridex) 0.12 % solutionIndicat ions:Alveolitis of jaw, left Swish 15 mL morning and night for 1 minute. Spit, do not swallow. Do not eat or drink for 30 minutes following use. 473 mL 5 Active cetirizine (ZyrTEC) 10 MG tablet Take 1 tablet (10 mg) by mouth Once per day. 90 tablet 1 5 04/25/20 25 Active ibuprofen 600 MG tabletIndicatio ns:Alveolitis of jaw, left Take 1 tablet (600 mg) by mouth 3 times daily. 30 tablet 5 Active chlorhexidine (Peridex) 0.12 % solution Use 15 mL in the mouth or throat if needed (for mouthwash 15 ml for 30 seconds, swish and spit) for up to 14 days. 473 mL 5 04/17/20 25 Active betamethasone valerate (Valisone) 0.1 % cream Apply topically if needed in the morning and at bedtime (dryness). 45 g 2 Active topiramate (Topamax) 25 MG tablet Take 1 tablet (25 mg) by mouth at bedtime. 30 tablet 11 5 04/17/20 26 Active docusate sodium (Colace) 100 MG capsule Take 1 capsule (100 mg) by mouth 2 times daily. 60 capsule 5 05/17/20 25 Active amoxicillin (Amoxil) 500 MG capsule Take 1 capsule (500 mg) by mouth every 8 (eight) hours for 7 days. 21 capsule 5 04/10/20 25 ibuprofen 800 MG tablet Take 1 tablet (800 mg) by mouth every 8 (eight) hours if needed for mild pain for up to 10 days. 15 tablet 5 04/13/20 25 Active Problems Problem Noted Date Diagnosed Date Cervical paraspinal muscle spasm 04/17/2025 DUB (dysfunctional uterine bleeding) 01/25/2025 Assessment & Plan (01/25/2025 12:25 PM EDT): See vaginal discharge, aspect related to Nexplanon Rash due to allergy 12/19/2024 Assessment & Plan (01/25/2025 12:23 PM EDT): This is sumatriptan as well, keep a symptom diary Start DON Wagoner Benadryl and refer to log deck tender Assessment & Plan (12/19/2024 1:45 PM EDT): Advised to avoid offending agents I will prescribe for her Benadryl 25 mg every 6 hours as needed, I instructed to report back if symptoms persist, I also reviewed with her ED precautions Anxiety 12/19/2024 Assessment & Plan (12/19/2024 1:45 PM EDT): Counseling done [facility] was called today HECTOR (generalized anxiety disorder) 12/19/2024 Assessment & Plan (12/20/2024 2:57 PM EDT): During [facility] Consult Winnie presenting with depressed mood, Tearful, crying spells , hopelessness, irritable mood, loss of interests/pleasure , change in appetite or weight reduce appetite, changes in sleep difficulty falling asleep, fatigue/loss of energy, inappropriate/excessive guilt , difficulty concentrating, excessive worry/anxiety, difficulty controlling worry, anxiety/worry associated to restlessness and/or feeling keyed-up/On edge , easily fatigued , difficulty concentrating and/or mind going blank , irritability, muscle tension , and sleep disturbance difficulty falling asleep, Fear , and sense of dread , and Recurrent panic attacks (abrupt surge of intese ellen or discomfort that reaches peak within minutes and during which time the following occur (4 or more) palpitations, trembling/shaking, sensation of shortness of breath/smothering, feeling of choking, dizzy/unsteady/light-headed/faint, Chills/heat sensation, numbness/tingling, fear of dying; for a period of 18+ mo, for some symptoms in the context of financial concern and illness or family illness. Pt reports feeling stressed, worried and anxious. She is able to identify what triggers increase of sxs. Pt is from [facility] and has been living in [place] for about two years. Pt is going through immigration process which is causing a lot of anxiety and panic sxs. Panic attacks 12/19/2024 Assessment & Plan (01/25/2025 12:24 PM EDT): We discussed about And mechanism with anxiety, she is able to reach out for safety She will see clinician today. Assessment & Plan (12/20/2024 2:57 PM EDT): During [facility] Consult Winnie presenting with depressed mood, Tearful, crying spells , hopelessness, irritable mood, loss of interests/pleasure , change in appetite or weight reduce appetite, changes in sleep difficulty falling asleep, fatigue/loss of energy, inappropriate/excessive guilt , difficulty concentrating, excessive worry/anxiety, difficulty controlling worry, anxiety/worry associated to restlessness and/or feeling keyed-up/On edge , easily fatigued , difficulty concentrating and/or mind going blank , irritability, muscle tension , and sleep disturbance difficulty falling asleep, Fear , and sense of dread , and Recurrent panic attacks (abrupt surge of intese ellen or discomfort that reaches peak within minutes and during which time the following occur (4 or more) palpitations, trembling/shaking, sensation of shortness of breath/smothering, feeling of choking, dizzy/unsteady/light-headed/faint, Chills/heat sensation, numbness/tingling, fear of dying; for a period of 18+ mo, for some symptoms in the context of financial concern and illness or family illness. Pt reports feeling stressed, worried and anxious. She is able to identify what triggers increase of sxs. Pt is from [facility] and has been living in [place] for about two years. Pt is going through immigration process which is causing a lot of anxiety and panic sxs. Moderately severe depression 12/19/2024 Assessment & Plan (12/20/2024 2:57 PM EDT): During IBH Consult Winnie presenting with depressed mood, Tearful, crying spells , hopelessness, irritable mood, loss of interests/pleasure , change in appetite or weight reduce appetite, changes in sleep difficulty falling asleep, fatigue/loss of energy, inappropriate/excessive guilt , difficulty concentrating, excessive worry/anxiety, difficulty controlling worry, anxiety/worry associated to restlessness and/or feeling keyed-up/On edge , easily fatigued , difficulty concentrating and/or mind going blank , irritability, muscle tension , and sleep disturbance difficulty falling asleep, Fear , and sense of dread , and Recurrent panic attacks (abrupt surge of intese ellen or discomfort that reaches peak within minutes and during which time the following occur (4 or more) palpitations, trembling/shaking, sensation of shortness of breath/smothering, feeling of choking, dizzy/unsteady/light-headed/faint, Chills/heat sensation, numbness/tingling, fear of dying; for a period of 18+ mo, for some symptoms in the context of financial concern and illness or family illness. Pt reports feeling stressed, worried and anxious. She is able to identify what triggers increase of sxs. Pt is from [facility] and has been living in [place] for about two years. Pt is going through immigration process which is causing a lot of anxiety and panic sxs. 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 Nonintractable episodic headache 08/30/2024 Assessment & Plan (01/03/2025 2:41 PM EDT): Unclear if related to migraine or some other structural abnormality, will order MRI DC amitriptyline and continue sumatriptan May consider carbamazepine or Topamax for migraine prophylaxis at next visit, will rule out side effect of medication as cause of headache. Assessment & Plan (08/30/2024 2:00 PM EST): [...] Problem Noted Date Diagnosed Date Resolved Date Vaginal discharge 12/19/2024 04/17/2025 Assessment & Plan (01/25/2025 12:24 PM EDT): Patient respiratory failure related to Nexplanon. She will take ibuprofen as needed Keep symptom diary, I told her that she will probably get menstrual bleeding with the same frequency from the 1 Ordered vaginal swab and follow-up results, will call back as needed abnormal results Follow-up with me in 3 to 4 months Assessment & Plan (12/19/2024 1:45 PM EDT): Will be ordered today I will treat her empirically with fluconazole Viral syndrome 12/19/2024 04/17/2025 Assessment & Plan (12/19/2024 1:46 PM EDT): Clinical picture regarding her emergency room visit is more compatible with a viral syndrome, I advised to drink plenty of water and rest We will continue to monitor follow-up with PCP Subacute vaginitis 08/30/2024 Assessment & Plan (08/30/2024 2:04 PM EST): It may be related to Nexplanon, not present today. I advised her to keep symptoms diary and if symptoms continue, will to self swab Will obtain records from [facility]. Encounters * This document contains information received from the source organization and may not represent a complete record from that organization. 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), not intractable; Panic attacks; Cervical paraspinal muscle spasm; Breast tenderness in female 04/17/2025 Travel 04/14/2025 Telephone [facility] MEDICINE [address] [place] [phone] Radha Recinos MD Chart Prep 04/06/2025 Patient Outreach [facility] [address] [place] [address] [phone] Radha Recinos MD Pre-visit Planning (SDOH screening completed on 10/28/2024) 04/03/2025 1:00 PM EDT Office Visit [facility] ADULT DENTAL [address] [place] [phone] Anne Wall, DDS History of painful gingiva (Primary Dx); Pain, dental; Supraeruption of teeth 01/31/2025 Results Follow-Up [address] [address] Radha Recinos MD Bacterial Vaginosis 01/25/2025 11:30 AM EDT Office Visit [address] [address] Radha Recinos MD Rash due to allergy (Primary Dx); Vaginal discharge; DUB (dysfunctional uterine bleeding); Panic attacks; Alveolitis of jaw, left 01/25/2025 Travel 01/24/[address] [address] Radha Recinos MD Chart Prep 01/16/2025 Patient Outreach [address] [address] Radha Recinos MD Pre-visit Planning ([facility] screening completed on 11/28/2024) from Last 3 Months Family History Medical History Relation Name Comments No Known Problems Father Diabetes Mother Relation Name Status Comments Father Mother Social History Tobacco Use Types Packs/Day Years Used Date Smoking Tobacco: Never Passive Smoke Exposure: Never Smokeless Tobacco: Never Tobacco Cessation:Counseling Given: [...] Mass Index 25 04/17/2025 11:54 AM EDT Plan of Treatment Upcoming Encounters Date Type Department Care Team (Late st Contact Info) Description 04/24/2025 9:00 AM EDT Office Visit [facility] ADULT DENTAL [address] [place] [address] Lloyd Moreno, CHAIM [address] [place] [address] 05/01/2025 2:30 PM EST Office Visit [facility] ADULT DENTAL [address] [place] [address] Chris Pinedo, DDS [address] [place] [address] Health Maintenance Due Date Last Done Comments Family Planning (PISQ) 2009 HPV Vaccines (1 - 3-dose series) 2009 DTaP/Tdap/Td Vaccines (1 - Tdap) 2013 Hepatitis B Vaccines (1 of 3 - 19+ 3-dose series) 2013 Pap Smear 2015 Cervical Cancer Screening 2024 HPV/Cotest 2024 Dental Oral Exam 10/31/2024 05/02/2024 Dental Prophylaxis 12/13/2024 06/13/2024 COVID-19 Vaccine (1 - 2023-2 5 season) 2025 Influenza Vaccine (#1) 2025 Depression Monitoring 10/16/2025 04/17/2025 , 04/17/2025 Disability Screening 10/28/2025 10/28/2024 Alcohol/Substance Use Screening 01/25/2026 01/25/2025 Tobacco Screening 04/03/2026 04/03/2025 Dental X-Ray: Bitewings 04/04/2026 04/03/20 25, 10/03/2024, 05/02/2024 SDOH Screening 04/17/2026 04/17/2025 Dental X-Ray: Full Mouth 11/16/2027 025, 08/08/2024, 05/02/2024 Zoster Vaccines (1 of 2) 2044 [...] patient's age to complete this topic Meningococcal B Vaccine Aged Out No l onger eligible based on patient's age to complete this topic Meningococcal Vaccine Aged Out No gabino deepak eligible based on patient's age to complete this topic Pneumococcal Vaccine: Pediatrics (0 to 5 Years) and At-Risk Patients (6 to 49) Years Aged Out No longer eligible b ased on patient's age to complete this topic RSV under 20 months Aged Out No longe r eligible based on patient's age to complete this topic Rotavirus Vaccines Aged Out No longer eligible based on patient's age to complete this topic Procedures Procedure Name Priority Date/Time Associated Diagnosis Comments CASE PRESENTATION, DETAILED AND EXTENSIVE TREATMENT PLANNING Routine 04/03/2025 1:00 PM EDT BITEWING - SINGLE RADIOGRAPHIC IMAGE Routine 04/03/2025 1:00 PM EDT INTRAORAL - PERIAPICAL FIRST RADIOGRAPHIC IMAGE Routine 04/03/2025 1:00 PM EDT PALLIATIVE (EMERGENCY) TREATMENT OF DENTAL PAIN - MINOR PROCEDURE Routine 04/03/2025 1:00 PM EDT BACTERIAL VAGINOSIS PANEL Routine 01/25/2025 12:00 PM EDT CHLAMYDIA/N. GONORRHOEAE RNA, TMA, UROGENITAL Routine 01/25/2025 12:00 PM EDT Vaginal discharge DUB (dysfunctional uterine bleeding) PANORAMIC RADIOGRAPHIC IMAGE Routine 11/14/2024 11:30 AM EDT Pain, dental HEPATITIS PANEL, GENERAL Routine 09/06/2024 10:29 AM EDT Subacute vaginitis HIV 1/2 ANTIGEN/ANTIBODY, FOURTH GENERATION W/RFL Routine 09/06/2024 10:29 AM EDT Subacute vaginitis PROPHYLAXIS - ADULT Routine 06/13/2024 1 1:00 AM EST Periodontal disease Dental calculus COMPREHENSIVE ORAL EVALUATION - NEW OR ESTABLISHED PATIENT Routine 05/02/2024 8:00 AM EST from Last 3 Months or Most Recently Relevant to Health Maintenance Results * (ABNORMAL) Bacterial Vaginosis (01/25/2025 12:00 PM EDT) TRICHOMONAS VAGINALIS DETECTION BY PCR NOT DETECTED Not Detect [facility] BACTERIAL VAGINOSIS DETECTION BY PCR NEGATIVE Negative [facility] Comment:The BV organism targ ets of the Xpert Xpress MVP test can becommensal in women; Xpert Xpress MVP positive results forbacterial vaginosis should be considered in conjunction withother clinical and patient information to determine thedisease status. Organisms that are not detected by the XpertXpress MVP test have also been reported to be associatedwith BV and aerobic vaginitis.The Xpert Xpress MVP test performance has not been evaluatedin patients under the age of 14. ERIKA GROUP DETECTION BY PCR DETECTED(A) Not Detect [facility] Erika glab krusei PCR DETECTED(A) Not Detect [facility] 01/25/2025 12:0 0 PM EDT 01/25/2025 1:23 PM EDT Radha Recinos MD LAB MICROBIOLOGY - GENER AL ORDERABLES Final Result [facility] [address] [place] [phone] [phone] * Chlamydia/N. Gonorrhoeae RNA, TMA, Urogenitial (01/25/2025 12:00 PM EDT) CT PCR NOT DETECTED Not Detect. [facility] Comment:A not detected test result does not exclude the possibilityof infection because test results can be affected byimproper specimen collection, concurrent antibiotic therapy,or the number of organisms in the specimen which may bebelow the sensitivity of the test. As with many diagnostictests, results from the Xpert CT/NG assay should beinterpreted in conjunction with other laboratory andclinical data available to the clinician.Xpert CT/NG performance has not been evaluated in patientsless than 14 years of age. The assay should not be used forthe evaluationof suspected sexual abuse or for other medico-legalindications. Additional testing is recommended in anycircumstance when false positive or false negative resultscould lead to adverse medical, social or psychologicalconsequences. NG PCR NOT DETECTED Not Detect. [facility] Comment:A not detected test result does not exclude the possibilityof infection because test results can be affected byimproper specimen collection, concurrent antibiotic therapy,or the number of organisms in the specimen which may bebelow the sensitivity of the test. As with many diagnostictests, results from the Xpert CT/NG assay should beinterpreted in conjunction with other laboratory andclinical data available to the clinician.Xpert CT/NG performance has not been evaluated in patientsless than 14 years of age. The assay should not be used forthe evaluationof suspected sexual abuse or for other medico-legalindications. Additional testing is recommended in anycircumstance when false positive or false negative resultscould lead to adverse medical, social or psychologicalconsequences. Urine (Urine, Random) 01/25/2025 12:00 PM EDT 01/25/2025 1:23 PM EDT Radha Recinos MD LAB MICROBIOLOGY - GENER AL ORDERABLES Final Result Performing Organization Address [facility] Co de Phone Number [facility] [address] [place] [phone] [phone] * Hepatitis Panel, General (09/06/2024 10:29 AM EDT) Hepatitis A IgM Nonreactive Nonreactive [facility] Comment:IgM antibodies to WILLIAMSON V not detected; does not exclude earlyacute or recovered HAV infection. ~Hepatitis B Surface Antibody NONREACTIVE Nonreactive [facility] Comment:Nonreactive: < 8.00 mIU/mL Hepatitis B Core Antibody Nonreactive Nonreactive [facility] Hepatitis C Antibody Nonreactive Nonreactive [facility] Comment:Antibodies to HCV no t detected; does not exclude early acuteHCV infection. Hepatitis B Surface Ag Negative Negative [facility] Blood 09/06/2024 10:2 9 AM EDT 09/06/2024 11:29 AM EDT Radha Recinos MD LAB BLOOD ORDERABLES Fin al Result Performing Organization Address [facility] Co de Phone Number [facility] [address] [place] [address] [phone] * HIV-1/2 Antigen and Antibodies, Fourth Generation, with Reflexes (09/06/2024 10:29 AM EDT) HIV AB/AG Nonreactive Nonreactive [facility] Comment:HIV-1 p24 Ag and/or HIV-1/HIV-2 Ab not detected.A test result that is nonreactive does not exclude thepossibility of exposure to or infection with HIV-1 and/orHIV-2. Nonreactive results in this assay for individualswith prior exposure to HIV-1 and/or HIV-2 may be due toantigen and antibody levels that are below the limit ofdetection of this assay.The [employer] HIV Ag/Ab Combo assay result andsupplemental assay results should be interpreted inconjunction with the patient's clinical presentation,history and other laboratory results. If the results areinconsistent with clinical evidence, additional testing issuggested to confirm the result. Blood Venous blood specimen / Unknown 09/06/2024 10:29 AM EDT 09/06/2024 11:29 AM EDT Radha Recinos MD LAB BLOOD ORDERABLES Fin al Result [facility] [address] [place] [phone] from Last 3 Months or Most Recently Relevant to Health Maintenance Insurance [facility] FULL DENT[facility] - [facility] FULL (MEDICAID) DENTAL-[facility] MEDICAID LIMITED ADULT Care Teams Life Skills Worker Relationship Specialty Start Date End Date Radha Recinos MD [address] [place] [phone] PCP - General Internal Medicine 08/30/24
--- OUTSIDE RECORDS SUMMARY | 2025-04-17 16:28 | XMS_ITS | Encounter Summary ---
Author Organization [facility] Address [address] [facility] [address]t [address] Floor [place] [id number] Care Team Providers Care Home Health Billing Specialist Name Role Phone Radha Recinos MD Primary Care Provider + Reason for Visit * Reason Onset Date Comments rs missed appt 08/16/2024 Encounter Details Date Type Department Care Team (Late st Contact Info) Description 08/16/2024 Telephone [facility] ADULT DENTAL [address] [place] [address] Gogo Constantino [address] [place] [address] rs missed appt Social History Tobacco Use [...] Description 04/24/2025 9:00 AM EDT Office Visit [facility] ADULT DENTAL [address] [place] [address] Lloyd Moreno, DMD [address] [place] [address] 05/01/2025 2:30 PM EST Office Visit [facility] ADULT DENTAL [address] [place] [address] Chris Pinedo, DDS [address] [place] [address] documented as of this encounter Visit Diagnoses Not on filedocumented in this encounter Care Teams Home Health Billing Specialist Relationship Specialty Start Date End Date Radha Recinos MD [address] [place] [address] PCP - General Internal Medicine 08/30/24 documented as of this encounter
== END 2025-04-17 13:25 | disposition home or self-care (01) ==
LOC: HO.HHCL 13:24
PROVIDERS: PCP Internal Medicine; Visit Provider Internal Medicine
DX: N64.4 Mastodynia (principal)
CPT/HCPCS: 36415; 84146; 84443; 84702